=== PATIENT | male | born 1940 | race Caucasian/White ===

== ENCOUNTER 2019-02-26 01:34 | Observation (INO) ==
--- NOTE | 2019-02-26 01:44 | Emergency Department Note ---
Disposition Clinical Impression: Frequent PVCs Chest pain Qualifiers: Chest pain type: other chest pain Qualified Code(s): R07.89 - Other chest pain Disposition: Admitted As Inpatient Condition: Fair Time of Disposition: 04:43 Chest Pain HPI - General Stated Complaint: Chest Pain Time Seen by Provider: 02/26/19 01:40 - History of Present Illness HPI Narrative: 78-year-old gentleman presents from home via EMS for evaluation of chest pain. Described as midsternal. He is uncertain if this pain is related to his arthritis which he knows his costosternal or if it is cardiac in nature. Unchanged with exertion. Present rest. Seems to be worse when he sits. Patient called [employer] because his chest pain felt different in that it radiated to his interscapular region. This pain awoke him from sleep. He checked his HR which was in the 130's. Patient notes he started a new cardiac medication appx 1 month ago that will "help him build up his heart muscle" but does not know the name. PMH: Hypertension, Hypercholesteremia, CAD/PTCA, Congestive Heart Failure ROS: Positive: As above Negative: Fever, chills, nausea, vomiting, palpitations, unusual dyspnea, diaphoresis - Related Data Home Medications Medication Instructions Recorded Confirmed Aspirin 81 mg PO DAILY 07/24/15 02/26/19 Isosorbide MONOnitrate (24 HR) 30 mg PO 1400 07/24/15 02/26/19 [Imdur] LORazepam [Ativan] 0.5 mg PO BID 07/24/15 02/26/19 Nitroglycerin [Nitrostat] 0.4 mg SL Q5-6MIN PRN 07/24/15 02/26/19 Simvastatin [Zocor] 20 mg PO HS 07/24/15 02/26/19 Pantoprazole Sodium [Protonix] 40 mg PO QAM 10/29/15 02/26/19 Ascorbate Calcium [Vitamin C] 500 mg PO QAM 01/10/19 02/26/19 Fish Oil/Dha/Epa [Fish Oil 1,200 1 each PO QAM 01/10/19 02/26/19 mg Fish Oil] Fluticasone Propionate Nasal 1 spr NS QAM 01/10/19 02/26/19 [Flonase] Multivit-Min/Folic/Vit K/Lycop 1 each PO QAM 01/10/19 02/26/19 [Men's 50 Plus Multivitamin Tab] Ubidecarenone/Vit E Acetate [Co 200 mg PO QAM 01/10/19 02/26/19 Q-10 100 mg Softgel] Sacubitril/Valsartan 24/26 mg 1 tab PO BID 02/26/19 02/26/19 [Entresto 24 mg-26 mg Tablet] Previous Rx's Medication Instructions Recorded Sodium Chloride [Sodium Chloride 1 gm PO BID #60 tablet 11/19/15 Tab] Metoprolol XL (24 HR) Succ [Toprol 12.5 mg PO DAILY 60 Days #30 01/11/19 Xl] tab.er.24h Allergies Allergy/AdvReac Type Severity Reaction Status Date / Time atropine Allergy Unknown unknown Verified 10/29/15 11:41 per patient phenobarbital Allergy Unknown unknown Verified 10/29/15 11:23 per patient phenylephrine Allergy Unknown unknown Verified 10/29/15 11:23 [From Hycomine Compound] per patient scopolamine Allergy Unknown unknown Verified 10/29/15 11:23 per patient acetaminophen [From Tylenol] Allergy See Verified 11/17/15 23:46 Comments hydromorphone [From Dilaudid] AdvReac Mild dizziness Verified 10/29/15 11:41 passed out morphine AdvReac Mild dizziness. Verified 10/29/15 11:41 passed out chlorpheniramine AdvReac Unknown "make feel Verified 10/29/15 11:41 [From Hycomine Compound] funny" codeine AdvReac Unknown light Verified 10/29/15 11:41 headed esomeprazole AdvReac Unknown made feel Verified 10/29/15 11:41 funny hydrocodone AdvReac Unknown light Verified 10/29/15 11:41 [From Hycomine Compound] headed Hyoscyamine [From ] AdvReac Unknown made feel Verified 10/29/15 11:41 funny oxycodone [From Percocet] AdvReac Unknown lgiht Verified 10/29/15 11:41 headed All systems ED: reviewed and negative except as stated. Review of Systems: As Per HPI Chest Pain PMH - Past Medical History Medical history: Reports: arthritis, cancer, coronary artery disease, hyperlipidemia, hypertension, myocardial infarction Surgical history: Reports: angioplasty/stent, cancer surgery, carotid endarterectomy, hip replacement Psychiatric history: Reports: anxiety - Social History Smoking Status: Never smoker Alcohol use: Reports: none Drug use: Reports: none Physical Exam Vital Signs Reviewed General: Patient is alert, oriented, and in no acute distress. Head: atraumatic, normocephalic Eye: normal appearance, PERRL, EOMI, no scleral icterus, no conjunctival injection ENT: mucous membranes moist, normal external ear exam Neck: normal inspection, trachea midline, full ROM Chest: normal inspection, symmetric chest rise Respiratory: Good respiratory effort. Bilateral breath sounds are clear without wheezing, crackles, or rhonchi. Cardiovascular: Regular rate and rhythm. No clicks, rubs, gallops, or murmors. Normal heart sounds. Bilateral radial pulses 2/4 equal. No pedal edema. Abdomen: Bowel sounds present normoactive. Abdomen is soft, nondistended, and nontender. No guarding or rebound. No organomegaly noted. Musculoskeletal: Spontaneously moving all extremities. No pain to palpation of patient's back or posterior ribs. Skin: warm, dry, intact. Neuro: GCS 15. No focal neurologic deficits observed. Psych: Patient's affect is appropriate for situation. Course Course Narrative: Cardiac catheterization January 2019 Impressions: Double vessel coronary artery disease. Previously stented LAD patent. Coronary Dominance: Left Lesion Findings/Interventions * Left Main Coronary Artery: There is a 30% stenosis in the Distal LMCA. The lesion has severe calcification noted. * Left Anterior Descending: There is a 40% instent restenosis in the Proximal LAD. The lesion has severe calcification noted. There is a 40% stenosis in the Mid LAD. * Circumflex: There is a 50% stenosis in the Proximal Circumflex. The lesion has severe calcification noted. * Right Coronary Artery: There is a 40% stenosis in the Proximal RCA. Echocardiogram January 2019 Impressions: LVEF 35%. Global and mild segmental LV systolic dysfunction. LV chamber size upper limits of normal. Normal right ventricular structure and function. Severe bi-atrial enlargement. Moderate aortic regurgitation. Mild mitral regurgitation. Mild- moderate tricuspid regurgitation. Mild-moderate pulmonic regurgitation. Moderate pulmonary hypertension. Left Ventricular Wall Motion: Rest Echo Findings - The apex, apical inferior, mid inferior, basal inferior, apical anterior, mid anterior, basal anterior, apical septal, mid inferior septal, basal inferior septal, apical lateral, mid anterior lateral, basal anterior lateral, mid anterior septal, mid inferior lateral, basal anterior septal and basal inferior lateral santiago were hypokinetic. EKG dated 02/26/19 at 01:45 interpreted as sinus rhythm with a rate of 93. Multifocal frequent PVCs. Prolonged GA interval; First degree AV block. Nonspecific STT changes. Compared to previous EKG dated 01/09/2019 showing increased PVC frequnecy. Patient has elevation in troponin of 0.06. This is consistent with his baseline. Aspirin given. Chest x-ray is unremarkable. No patient had a recent cardiac catheterization, he has a change in character of his chest pain now including interscapular pain that is nonreproducible. Given his elevated troponin, though somewhat normal for him, recommend admission to the hospital for cyclic troponins. I discussed this with the admitting hospitalist, Dr. Restrepo, who agrees to accept the patient for continued evaluation and monitoring. Chest X-Ray 02/26/19 01:40 IMPRESSION: No acute findings. D/ / Prachi Moon MD / Prachi Moon MD Interpreting Provider: Prachi Moon MD Vital Signs Temperature 97.9 F 02/26/19 01:42 Pulse Rate 85 02/26/19 01:42 Respiratory Rate 18 02/26/19 01:42 Blood Pressure 119/65 02/26/19 01:42 O2 Sat by Pulse Oximetry 100 02/26/19 01:42 Temperature 97.9 F 02/26/19 01:42 Pulse Rate 61 02/26/19 04:10 Respiratory Rate 16 02/26/19 04:10 Blood Pressure 113/70 02/26/19 04:10 O2 Sat by Pulse Oximetry 99 02/26/19 04:10 Oxygen Delivery Oxygen Delivery Room Air Chest Pain - Lab Data Result diagrams: 02/26/19 08:18 02/26/19 01:55 Lab Results 02/26/19 02/26/19 02/26/19 Range/Units 01:55 01:55 01:55 WBC 5.4 (4.3-11.1) K/mcL RBC 3.51 L (4.19-5.50) M/mcL Hgb 11.1 L (12.9-16.9) g/dL Hct 33.8 L (37.5-50.1) % MCV 96.3 (83.0-100.0) fL MCH 31.6 (28.0-33.3) pg MCHC 32.8 (31.6-35.5) g/dL RDW 14.9 H (11.5-14.5) % Plt Count 148 (140-400) K/mcL MPV 11.2 (9.4-12.4) fL Immature Gran % 0.2 (0-4) % Seg Neutrophils % 65.8 % Lymphocytes % 23.9 % Monocytes % 8.4 % Eosinophils % 1.1 % Basophils % 0.6 % Neutrophils # 3.5 (1.6-8.9) K/mcL Lymphocytes # 1.3 (0.6-4.6) K/mcL Monocytes # 0.5 (0.0-1.3) K/mcL Eosinophils # 0.1 (0.0-0.6) K/mcL Basophils # 0.0 (0.0-0.2) K/mcL PT 11.9 (9.4-12.1) Seconds INR 1.1 APTT 36.7 H (26.0-36.0) Seconds Sodium 133 L (136-145) mEq/L Potassium 5.1 (3.5-5.1) mEq/L Chloride 101 (98-107) mEq/L Carbon Dioxide 24 (23-29) mEq/L BUN 26 H (8-23) mg/dL Creatinine 1.46 H (0.70-1.30) mg/dL Est GFR ( Amer) 56 L (> 60) Est GFR (Non-Af Amer) 46 L (> 60) BUN/Creatinine Ratio 18 (6-26) Glucose 113 H (70-105) mg/dL Calculated Osmolality 282 (280-300) Calcium 9.5 (8.6-10.3) mg/dL Troponin I 0.06 H* (< 0.04) ng/mL Heart Score - Score History: Moderately Suspicious EKG: Non Specific repolarisation Disturbance Age: Greater than 65 Risk Factors: Equal/Greater than 3 risk factor or history of atherosclerotic disease Troponin: 1-3x normal limit HEART Score Total: 7 Attestation Statement - Attestation Attestation: Dr. Farrell note: Patient seen in conjunction with emergency resident Dr. Ramirez. Please see his charting for complete documentation. I spent [id number] time with the patient and agree with the patient's treatment and disposition. Elevation in troponin noted. EKG and heart monitor shows intermittent sinus tachycardia with multifocal atrial beats and multiple premature ventricular contractions. No act helena pain in the chest admission. Back pain which is new symptom tonight. As well as palpitations. Vital signs stable upon admission.
[2019-02-26 02:37] LABS: Calcium 9.5 mg/dL (8.6-10.3); Potassium 5.1 mEq/L (3.5-5.1); Troponin I 0.06 ng/mL (< 0.04)
[2019-02-26 03:02] LABS: Basophils % 0.6 %; Eosinophils # 0.1 K/mcL (0.0-0.6); Eosinophils % 1.1 %; Hematocrit 33.8 % (37.5-50.1); Hemoglobin 11.1 g/dL (12.9-16.9); Immature Granulocytes % 0.2 % (0-4); Lymphocytes # 1.3 K/mcL (0.6-4.6); Lymphocytes % 23.9 %; Mean Corpuscular HGB Conc 32.8 g/dL (31.6-35.5); Mean Corpuscular Hemoglobin 31.6 pg (28.0-33.3); Mean Corpuscular Volume 96.3 fL (83.0-100.0); Mean Platelet Volume 11.2 fL (9.4-12.4); Monocytes # 0.5 K/mcL (0.0-1.3); Monocytes % 8.4 %; Neutrophils # 3.5 K/mcL (1.6-8.9); Platelet Count 148 K/mcL (140-400); Red Blood Count 3.51 M/mcL (4.19-5.50); Red Cell Distribution Width 14.9 % (11.5-14.5); Segmented Neutrophils % 65.8 %
[2019-02-26 03:20] LABS: INR 1.1; Prothrombin Time 11.9 Seconds (9.4-12.1)
[2019-02-26 03:22] LABS: Activated Partial Thrombo Time 36.7 Seconds (26.0-36.0)
[2019-02-26] MEDS ORDERED: Naloxone 0.4 MG/ML INJ IVP PRN (05:32)
[2019-02-26] MEDS ORDERED: Ondansetron 4 MG/2 ML VIAL IVP PRN (05:32)
[2019-02-26] MEDS ORDERED: Nitroglycerin 0.4 MG TAB.SUBL SL PRN (05:37)
--- NOTE | 2019-02-26 05:52 | Internal Med History&Physical ---
Date of Encounter: 02/26/19 Time of Encounter: 04:45 Internal Medicine - H&P: HPI Chief complaint: CP Admitted From: Emergency Dept Plans for Post Hospital Care: Home History of present illness: Mr. Kraft is a 78 year old male w/PMH of CAD, HLD, HTN, previous myocardial infarction in 2003 with stent placement 2, renal carcinoma w/removal of rt. kidney, arthritis, CKD, and anxiety presents from the ED with chief complaint of chest pain that began overnight. Patient reports pain in the center of his chest with radiation to his back. Patient states he has had this pain before and has costosternal pain due to arthritis. Pain was unprovoked and first occurred when patient was [employer] and then awoke patient from sleep. Checked his heart rate which was in 130s at the time. Last echo done on 01/10/19 which showed LVEF of 35%. Patient was placed on new medication by Dr. Wild to help build his heart muscle and also scheduled for cardiac rehabilitation. LHC done on 01/17/19. No aggravating or alleviating factors. Patient reports weakness but denies recent illness, fever, chills, nausea, vomiting, headache, changes in vision, unusual bleeding, shortness of breath, abdominal pain, diarrhea, constipation, dizziness, lightheadedness, numbness, tingling, pre-syncope, or syncope. Past Med Surg Social Fam HX - Past Medical History Source: patient, old records reviewed, obtained from family Medical history: arthritis, cancer (Renal carcinoma w/removal of rt kidney), coronary artery disease, hyperlipidemia, hypertension, myocardial infarction (2003) Additional medical history: TMJ, cataracts, Cerebral Vascular Disease, Kidney cancer Psychiatric history: anxiety - Past Surgical History Surgical History: angioplasty/stent, cancer surgery, carotid endarterectomy, hip replacement (Left) Additional surgical history: nephrectomy, right testicle removed, hernia repair, tumor removed from groin - Social History Smoking Status: Never smoker Smokeless Tobacco Status: No Alcohol use: none Drug use: none Occupational status: previously employed Current living situation: Home, With Family Activity Level: Independent ambulation, Very active Recent Out of Country Travel Within the Last 8 Weeks: No Exposure or Possible Exposure to Illness During Travel: No - Family History Father Race: Family Member Ethnicity: Non- Living Status: Age at : 69 Cause of : [place] Hx Family Cardiac Disorders: Yes (OH) Mother Race: Family Member Ethnicity: Non- Living Status: Age at : 60 Cause of : [place] Hx Family Cardiac Disorders: Yes ([place]) Brother Race: Family Member Ethnicity: Non- Living Status: Age at : 80 Cause of : Suspected OH Hx Family Cardiac Disorders: Yes (Probable OH) Sister Race: Family Member Ethnicity: Non- Living Status: Age at : 78 Cause of : Blood clot after surgery Hx Family Cardiac Disorders: Yes (Blood clot) Internal Medicine - H&P: Meds Aspirin 81 mg PO DAILY 07/24/15 [History] Isosorbide MONOnitrate (24 HR) [Imdur] 30 mg PO 1400 07/24/15 [History] LORazepam [Ativan] 0.5 mg PO BID 07/24/15 [History] Nitroglycerin [Nitrostat] 0.4 mg SL Q5-6MIN PRN 07/24/15 [History] Simvastatin [Zocor] 20 mg PO HS 07/24/15 [History] Pantoprazole Sodium [Protonix] 40 mg PO QAM 10/29/15 [History] Sodium Chloride [Sodium Chloride Tab] 1 gm PO BID #60 tablet 11/19/15 [Rx] Ascorbate Calcium [Vitamin C] 500 mg PO QAM 01/10/19 [History] Fish Oil/Dha/Epa [Fish Oil 1,200 mg Fish Oil] 1 each PO QAM 01/10/19 [History] Fluticasone Propionate Nasal [Flonase] 1 spr NS QAM 01/10/19 [History] Multivit-Min/Folic/Vit K/Lycop [Men's 50 Plus Multivitamin Tab] 1 each PO QAM 01/10/19 [History] Ubidecarenone/Vit E Acetate [Co Q-10 100 mg Softgel] 200 mg PO QAM 01/10/19 [History] Metoprolol XL (24 HR) Succ [Toprol Xl] 12.5 mg PO DAILY 60 Days #30 tab.er.24h 01/11/19 [Rx] Sacubitril/Valsartan 24/26 mg [Entresto 24 mg-26 mg Tablet] 1 tab PO BID 02/26/19 [History] Allergy/AdvReac Type Severity Reaction Status Date / Time atropine Allergy Unknown unknown Verified 10/29/15 11:41 per patient phenobarbital Allergy Unknown unknown Verified 10/29/15 11:23 per patient phenylephrine Allergy Unknown unknown Verified 10/29/15 11:23 [From Hycomine Compound] per patient scopolamine Allergy Unknown unknown Verified 10/29/15 11:23 per patient acetaminophen [From Tylenol] Allergy See Verified 11/17/15 23:46 Comments hydromorphone [From Dilaudid] AdvReac Mild dizziness Verified 10/29/15 11:41 passed out morphine AdvReac Mild dizziness. Verified 10/29/15 11:41 passed out chlorpheniramine AdvReac Unknown "make feel Verified 10/29/15 11:41 [From Hycomine Compound] funny" codeine AdvReac Unknown light Verified 10/29/15 11:41 headed esomeprazole AdvReac Unknown made feel Verified 10/29/15 11:41 funny hydrocodone AdvReac Unknown light Verified 10/29/15 11:41 [From Hycomine Compound] headed Hyoscyamine [From ] AdvReac Unknown made feel Verified 10/29/15 11:41 funny oxycodone [From Percocet] AdvReac Unknown lgiht Verified 10/29/15 11:41 headed All Systems PM: A 10-system review of systems was performed and is negative for pertinent findings except as documented above in the HPI. - Constitutional Constitutional: as per HPI, weakness, no chills, no fever(s), no night sweats - EENT Eyes: no change in vision, no discharge, no pain, no photophobia Ears: no ear discharge, no ear pain, no tinnitus Nose, mouth and throat: no dysphagia, no nasal discharge, no neck pain, no sore throat - Breasts Breasts: as per HPI - Cardiovascular Cardiovascular ROS IM: as per HPI, chest pain, no diaphoresis, no dyspnea, no lightheadedness, no palpitations, no syncope - Respiratory Respiratory: no cough, no dyspnea, no wheezing, no excessive phlegm production - Gastrointestinal Gastrointestinal: no abdominal pain, no diarrhea, no hematemesis, no hematochezia, no melena, no nausea, no vomiting - Genitourinary Genitourinary ROS male: as per HPI - Musculoskeletal Musculoskeletal ROS IM: as per HPI, back pain, no numbness, no tingling - Integumentary Integumentary IM: no rash, no unusual bruising - Neurological Neurological ROS: as per HPI, weakness, no confusion, no convulsions, no focal weakness, no numbness, no tingling, no tremor(s) - Psychiatric Psychiatric: as per HPI, anxiety - Endocrine Endocrine IM: as per HPI - Hematologic/Lymphatic Hematologic/Lymphatic: no easy bruising - Allergic/Immunologic Allergic/Immunologic: as per HPI - Constitutional Vitals: Temp Pulse Resp BP Pulse Ox 97.9 F 61 16 113/70 99 02/26/19 01:42 02/26/19 04:10 02/26/19 04:10 02/26/19 04:10 02/26/19 04:10 General appearance: Present: cooperative, A&O X 3, pleasant, no acute distress, answers questions appropriately Exam: Pt. examined at bedside in ED. Pt. states his CP and back pain are currently resolved. Pt. denies any other sx or complaints at this time. VS: 97.8F temp, HR 61, RR 16, BP 113/70, SPO2 99% on room air. - Head Head exam: Present: atraumatic, normocephalic - Eye Eye exam: Present: PERRL, conjuntiva pink, sclera anicteric Pupils: Present: PERRL - ENT ENT exam: Present: normal exam - Neck Neck exam general surgery: Present: normal inspection, supple, trachea midline. Absent: lymphadenopathy - Respiratory Respiratory exam: Present: CTAB. Absent: accessory muscle use, rales, rhonchi, wheezes - Cardiovascular Cardiovascular exam: Present: irregular rhythm, +S1, +S2. Absent: diastolic murmur, gallop, rubs, systolic murmur - GI/Abdominal GI/Abdominal exam: Present: normal bowel sounds, soft, no peritoneal signs. Absent: distended, tenderness - Rectal Rectal exam: Present: deferred - Additional comments: exam deferred. - Extremities Exam Extremities exam: Present: warm, radial pulses palpable and symmetrical. Abs ent: calf tenderness, cyanotic, pedal edema - Back Exam Back exam: Present: normal inspection - Neurological Exam Neurological exam: Present: alert, CN II-XII intact, oriented X3, no focal deficits. Absent: pronater drift, facial droop, speech deficit - Psychiatric Psychiatric exam: Present: normal affect, normal mood - Skin Skin exam: Present: dry, intact Internal Med - H&P Results - Labs CBC & Chem 7: 02/26/19 01:55 02/26/19 01:55 Labs: Short CBC 02/26/19 Range/Units 01:55 WBC 5.4 (4.3-11.1) K/mcL Hgb 11.1 L (12.9-16.9) g/dL Hct 33.8 L (37.5-50.1) % Plt Count 148 (140-400) K/mcL Neutrophils # 3.5 (1.6-8.9) K/mcL BMP 02/26/19 01:55 Sodium 133 L Potassium 5.1 Chloride 101 Carbon Dioxide 24 BUN 26 H Creatinine 1.46 H Glucose 113 H Calcium 9.5 Cardiac Enzymes 02/26/19 Range/Units 01:55 Troponin I 0.06 H* (< 0.04) ng/mL - EKG Data EKG shows normal: sinus rhythm Rate: tachycardia - EKG Data Prior EKG available for review: yes EKG comments: 02/26/19 05:58 EKG dated 01/09/19 shows atrial fibrillation with paired ventricular premature complexes. Anterior infarct, old. EKG dated 02/26/19 shows sinus tachycardia with ventricular tachycardia unsustained, short ND interval, biatrial enlargement, anterior infarct (old), and non-specific T abnormalities in lateral leads. - Impressions ITS Impressions Chest X-Ray 02/26/19 01:40 IMPRESSION: No acute findings. D/ / Prachi Moon MD / Prachi Moon MD Interpreting Provider: Prachi Moon MD - Diagnostic Studies Chest x-ray Additional comments: Impressions Chest X-Ray 02/26/19 01:40 IMPRESSION: No acute findings. D/ / Prachi Moon MD / Prachi Moon MD Interpreting Provider: Prachi Moon MD - Assessment and Plan (1) Chest pain Current Visit: Yes Status: Acute Assessment and plan: Acute CP that began overnight. Patient reports pain in the center of his chest with radiation to his back. Patient states he has had this pain before and has costosternal pain due to arthritis. Pain was unprovoked and first occurred when patient was [employer] and then awoke patient from sleep. Checked his heart rate which was in 130s at the time. Last echo done on 01/10/19 which showed LVEF of 35%. LHC performed on 01/17/19 which showed double vessel coronary artery disease, 30% stenosis in the distal LMCA, 40% in-stent restenosis in the proximal LAD, 40% stenosis in the mid LAD, 50% stenosis in the proximal circumflex, and 40% stenosis in the proximal RCA. Patient was placed on new medication by Dr. Wild to help build his heart muscle and also scheduled for cardiac rehabilitation. No aggravating or alleviating factors. Hx of previous OH in 2003 w/stents x2. Initial troponin 0.06. Trending. ASA. Statin. SL nitro PRN. Limited Echocardiogram ordered. Cardiology consult ordered but not confirmed d/t time of night placed. A.M. team to follow-up and confirm consult d/t pts. high- risk status. Pt. is high risk for cardiac event and further morbidity d/t current unprovoked CP, hx of previous OH w/stents x2, recent LHC showing further stenosis, reduced LVEF of 35% on recent Echo, extensive familial hx of OH and CAD; and risk factors of HTN, HLD, previous OH. Observation. Qualifiers: Chest pain type: other chest pain Qualified Code(s): R07.89 - Other chest pain; R07.8 - Other chest pain (2) Elevated troponin I level Current Visit: Yes Status: Chronic Assessment and plan: Hx of chronically elevated troponins. Initial troponin tonight 0.06. Trending. No CP on exam. Trending x2. (3) CAD (coronary artery disease) Current Visit: Yes Status: Chronic Assessment and plan: Hx of chronic CAD. OH in 2003. Stent placement x2. LHC on 01/17/19 showed double vessel coronary artery disease. 30% stenosis and distal LMCA. 40% in-stent restenosis in the proximal LAD. 40% stenosis in the mid LAD. 50% stenosis in the proximal circumflex. 40% stenosis in the proximal RCA. Echocardiogram on 01/07/19 shows LVEF 35%. Continuous cardiac telemetry. Continue pts. HLD and HTN medications. Qualifiers: Coronary Disease-Associated Artery/Lesion type: [place] artery [place] vs. transplanted heart: [place] heart Associated angina: without angina Qualified Code(s): I25.10 - Atherosclerotic heart disease of [place] coronary artery without angina pectoris (4) HTN (hypertension) Current Visit: Yes Status: Chronic Assessment and plan: Hx of chronic HTN. Monitor pt. and VS. Continue pts. Metoprolol. Qualifiers: Hypertension type: essential hypertension Qualified Code(s): I10 - Essential (primary) hypertension (5) HLD (hyperlipidemia) Current Visit: Yes Status: Chronic Assessment and plan: Hx of chronic HLD. Lipid panel in a.m. labs. Continue pts. Zocor. Qualifiers: Hyperlipidemia type: pure hypercholesterolemia Qualified Code(s): E78.00 - Pure hypercholesterolemia, unspecified; E78.0 - Pure hypercholesterolemia (6) CKD (chronic kidney disease) Current Visit: Yes Status: Chronic Assessment and plan: Hx of CKD. Currently stage 3 w/GFR of 46 and creatinine of 1.46. Monitor I&O. Avoid nephrotoxins. Qualifiers: Chronic kidney disease stage: stage 3 (moderate) Qualified Code(s): N18.3 - Chronic kidney disease, stage 3 (moderate) (7) GERD (gastroesophageal reflux disease) Current Visit: Yes Status: Chronic Assessment and plan: Hx of chronic GERD. Continue pts. Protonix. Qualifiers: Esophagitis presence: without esophagitis Qualified Code(s): K21.9 - Gastro-esophageal reflux disease without esophagitis (8) Status post nephrectomy Current Visit: Yes Status: Chronic Assessment and plan: Hx of removal of right kidney due to renal carcinoma. Monitor pts. I&O. Avoid nephrotoxins. (9) Previous myocardial infarction older than 8 weeks Current Visit: Yes Status: Resolved Assessment and plan: Hx of previous OH in 2003. Stents x2. Continuous cardiac telemetry. Continue pts. HLD and HTN medications. (10) DVT prophylaxis Current Visit: Yes Status: Acute Assessment and plan: Heparin 5,000 units SQ Q8HR for DVT prophylaxis. Monitor pt. for signs of bleeding. - Time Spent With Patient Total time spent is greater than 50% in coordination of care (as documented) at patient's floor/unit and/or counseling patient: Greater than 35 minutes
[2019-02-26] MEDS ORDERED: *HR* Heparin 5,000 UNIT/ML VIAL SQ SCH (06:00)
[2019-02-26] MEDS ORDERED: *HR* Heparin 5,000 UNIT/ML VIAL IVP ONE (07:28)
[2019-02-26] MEDS ORDERED: *HR* Heparin 5,000 UNIT/ML VIAL IVP PRN ×2 (07:28)
[2019-02-26] MEDS ORDERED: Heparin 25,000 UNIT/250 ML D5W 25,000 UNIT/250 ML IV.SOLN IVC SCH (07:30)
[2019-02-26 08:42] LABS: Hemoglobin 10.3 g/dL (12.9-16.9); Mean Corpuscular HGB Conc 33.2 g/dL (31.6-35.5); Mean Corpuscular Volume 96.3 fL (83.0-100.0); Mean Platelet Volume 10.3 fL (9.4-12.4); Platelet Count 131 K/mcL (140-400); Red Blood Count 3.22 M/mcL (4.19-5.50); Red Cell Distribution Width 14.9 % (11.5-14.5)
[2019-02-26 08:54] LABS: INR 1.1; Prothrombin Time 12.6 Seconds (9.4-12.1)
[2019-02-26] MEDS ORDERED: Aspirin Enteric Coated 81 MG Tablet PO SCH (09:00)
[2019-02-26] MEDS: Metoprolol XL (24 HR) Succ 25 MG TAB.ER.24H PO SCH (09:03)
[2019-02-26] MEDS: Aspirin 81 MG TAB.CHEW PO SCH (09:03)
[2019-02-26] MEDS: *HR* LORazepam 0.5 MG TABLET PO SCH ×2 (09:03→20:45)
[2019-02-26] MEDS: (Pantoprazole Sodium [Protonix] 40 MG) PO SCH (09:03)
[2019-02-26] MEDS: SACUBITRIL/VALSARTAN 24/26 MG TABLET PO SCH ×2 (09:03→20:45)
--- NOTE | 2019-02-26 09:35 | Internal Med Progress Note ---
Hospitalist Progress Note - Encounter Date of Encounter: 02/26/19 Time of Encounter: 09:48 - Subjective Interval History: No acute event overnight. No active chest pain at this time. Family at bedside. Review the lab with high troponin. Reviewed vitals Patient denies fever chills nausea vomiting headache dizziness shortness of breath abdominal pain diarrhea - Exam Vitals: Temp Pulse Resp BP Pulse Ox 97.6 F 62 18 124/77 100 02/26/19 07:04 02/26/19 07:04 02/26/19 07:04 02/26/19 07:04 02/26/19 07:04 Exam: Pt. examined at bedside in ED. Pt. states his CP and back pain are currently resolved. Pt. denies any other sx or complaints at this time. VS: 97.8F temp, HR 61, RR 16, BP 113/70, SPO2 99% on room air. - Assessment and Plan (1) Chest pain Current Visit: Yes Status: Acute Assessment and Plan: Acute CP that began overnight. Patient reports pain in the center of his chest with radiation to his back. Patient states he has had this pain before and has costosternal pain due to arthritis. Pain was unprovoked and first occurred when patient was [place] and then awoke patient from sleep. Checked his heart rate which was in 130s at the time. Last echo done on 01/10/19 which showed LVEF of 35%. LHC performed on 01/17/19 which showed double vessel coronary artery disease, 30% stenosis in the distal LMCA, 40% in-stent restenosis in the proximal LAD, 40% stenosis in the mid LAD, 50% stenosis in the proximal circumflex, and 40% stenosis in the proximal RCA. Patient was placed on new medication by Dr. Wild to help build his heart muscle and also scheduled for cardiac rehabilitation. No aggravating or alleviating factors. Hx of previous [place] in 2003 w/stents x2. Initial troponin 0.06. Started him on heparin drip and continued ASA, beta lisa Statin. SL nitro PRN. Limited Echocardiogram ordered. Consulted cardiology. Pt. is high risk for cardiac event and further morbidity d/t current unprovoked CP, hx of previous [place] w/stents x2, recent LHC showing further stenosis, reduced LVEF of 35% on recent Echo, extensive familial hx of [place] and CAD; and risk factors of HTN, HLD, previous WI. (2) CAD (coronary artery disease) Current Visit: No Status: Chronic Assessment and Plan: Hx of chronic CAD. [place] in 2003. Stent placement x2. [facility] on 01/17/19 showed double vessel coronary artery disease. 30% stenosis and distal LMCA. 40% in-stent restenosis in the proximal LAD. 40% stenosis in the mid LAD. 50% stenosis in the proximal circumflex. 40% stenosis in the proximal RCA. Echocardiogram on 01/07/19 shows LVEF 35%. Continuous cardiac telemetry. Continue home medicine (3) Acute kidney injury Current Visit: No Status: Acute Assessment and Plan: Baseline creatinine 1.28. On admission creatinine 1.46. patient is on ARB for severe cardiomyopathy EF 35% . Be cautious in hydration due to low EF. Monitor BMP tomorrow if further worsening cr then will hold ARB. 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 Monitor pts. I&O. Avoid nephrotoxins. (5) GERD (gastroesophageal reflux disease) Current Visit: No Status: Chronic Assessment and Plan: Hx of chronic GERD. Continue pts. Protonix. (6) Elevated troponin I level Current Visit: No Status: Chronic Assessment and Plan: Hx of chronically elevated troponins. Initial troponin tonight 0.06. Trending. No CP on exam. Please see above (7) CKD (chronic kidney disease) Current Visit: No Status: Chronic Assessment and Plan: Hx of CKD. Currently stage 3 w/GFR of 46 and creatinine of 1.46. Monitor I&O. Avoid nephrotoxins. (8) HTN (hypertension) Current Visit: No Status: Chronic Assessment and Plan: well controlled Hx of chronic HTN. Monitor bp. home med (9) HLD (hyperlipidemia) Current Visit: No Status: Chronic Assessment and Plan: Hx of chronic HLD. Lipid panel - pending. Continue pts. Zocor. (10) Previous myocardial infarction older than 8 weeks Current Visit: No Status: Resolved Assessment and Plan: Hx of previous [place] in 2003. Stents x2. Continuous cardiac telemetry. Continue pts. HLD and HTN medications. (11) DVT prophylaxis Current Visit: No Status: Acute Assessment and Plan: on heparin drip now - Time Spent with Patient Total time spent is greater than 50% in coordination of care (as documented) at patient's floor/unit and/or counseling patient: Internal Medicine: Result - Labs CBC & Chem 7: 02/26/19 08:18 02/26/19 01:55 Labs: Short CBC 02/26/19 02/26/19 Range/Units 01:55 08:18 WBC 5.4 6.0 (4.3-11.1) K/mcL Hgb 11.1 L 10.3 L (12.9-16.9) g/dL Hct 33.8 L 31.0 L (37.5-50.1) % Plt Count 148 131 L (140-400) K/mcL Neutrophils # 3.5 (1.6-8.9) K/mcL BMP 02/26/19 01:55 Sodium 133 L Potassium 5.1 Chloride 101 Carbon Dioxide 24 BUN 26 H Creatinine 1.46 H Glucose 113 H Calcium 9.5 Cardiac Enzymes 02/26/19 02/26/19 Range/Units 01:55 08:18 Troponin I 0.06 H* 0.07 H* (< 0.04) ng/mL - ABG Interpretation ABG results: PT/INR, D-dimer PT 12.6 Seconds (9.4-12.1) H 02/26/19 08:18 - Impressions Impressions Chest X-Ray 02/26/19 01:40 IMPRESSION: No acute findings. D/ / Prachi Moon MD / Prachi Moon MD Interpreting Provider: Prachi Moon MD Consult Discharge Plan - Plan Referrals: Pavan Samson Jr, MD [Primary Care Provider] - (1) Chest pain Qualifiers: Chest pain type: other chest pain Qualified Code(s): R07.89 - Other chest pain; R07.8 - Other chest pain (2) CAD (coronary artery disease) Qualifiers: Coronary Disease-Associated Artery/Lesion type: [place] artery [place] vs. transplanted heart: [place] heart Associated angina: without angina Qualified Code(s): I25.10 - Atherosclerotic heart disease of [place] coronary artery without angina pectoris (5) GERD (gastroesophageal reflux disease) Qualifiers: Esophagitis presence: without esophagitis Qualified Code(s): K21.9 - Gastro- esophageal reflux disease without esophagitis (7) CKD (chronic kidney disease) Qualifiers: Chronic kidney disease stage: stage 3 (moderate) Qualified Code(s): N18.3 - Chronic kidney disease, stage 3 (moderate) (8) HTN (hypertension) Qualifiers: Hypertension type: essential hypertension Qualified Code(s): I10 - Essential (primary) hypertension (9) HLD (hyperlipidemia) Qualifiers: Hyperlipidemia type: pure hypercholesterolemia Qualified Code(s): E78.00 - Pure hypercholesterolemia, unspecified; E78.0 - Pure hypercholesterolemia
--- NOTE | 2019-02-26 12:45 | Cardiology Consult Note ---
<Mello Tsang - Last Filed: 02/26/19 13:23> Date of Encounter: 02/26/19 Time of Encounter: 12:10 Assessment and Plan (1) Chest pain Current Visit: Yes Status: Acute Per Cardiology: Atypical symptoms. Troponins 0.06 and 0.07, peak during last hospital stay January 2019 0.12 time a catheterization with no intervention warranted. Suspect demand ischemia-- no cardiac rehabilitation consult warranted; has outpatient pending pre-rehabilitation stress test for phase 2 cardiac rehabilitation. Limited echo pending. We will discontinue IV heparin drip. Will increase long- acting nitrate of Imdur 30m PO daily to 60mg. average heart rate on telemetry 59, sinus bradycardia to sinus rhythm with no significant events noted. Qualifiers: Chest pain type: other chest pain Qualified Code(s): R07.89 - Other chest pain; R07.8 - Other chest pain (2) CAD (coronary artery disease) Current Visit: No Status: Chronic Per Cardiology: Left heart catheterization from January 2019 at time of troponin 0.12: Lesion Findings/Interventions * Left Main Coronary Artery There is a 30% stenosis in the Distal LMCA. The lesion has severe calcification noted. * Left Anterior Descending There is a 40% instent restenosis in the Proximal LAD. The lesion has severe calcification noted. There is a 40% stenosis in the Mid LAD. * Circumflex There is a 50% stenosis in the Proximal Circumflex. The lesion has severe calcification noted. * Right Coronary Artery There is a 40% stenosis in the Proximal RCA. On aspirin, statin, beta lisa, Entresto, Imdur. Qualifiers: Coronary Disease-Associated Artery/Lesion type: [place] artery [place] vs. transplanted heart: [place] heart Associated angina: without angina Qualified Code(s): I25.10 - Atherosclerotic heart disease of [place] coronary artery [facility] angina pectoris (3) Cardiomyopathy Current Visit: Yes Status: Chronic Per Cardiology: ECHO 01/2019: Impressions: LVEF 35%. Global and mild segmental LV systolic dysfunction. LV chamber size upper limits of normal. Normal right ventricular structure and function. Severe bi-atrial enlargement. Moderate aortic regurgitation. Mild mitral regurgitation. Mild-moderate tricuspid regurgitation. Mild-moderate pulmonic regurgitation. Moderate pulmonary hypertension. On BB and entresto. Euvolemic on exam. Further outpatient evaluation for need for ICD. Current limited echo pending. Qualifiers: Cardiomyopathy type: unspecified Qualified Code(s): I42.9 - Cardiomyopathy, unspecified Discussion w patient/family: The assessment and plan as outlined above was discussed with the patient and/or family members who expressed understanding and agreement. All questions were answered. Thank you for involving us in the care of your patient. Please call with any questions. History of Present Illness Consult date: 02/26/19 Requesting physician: Geneva Gracia Consult reason: CP Chief complaint: Elevated BP, HR, Back pain, CP History of present illness: Mr. Kraft is a 78 year old male with a relevant past medical history of HTN, HLD, CKD 3A, CAD, anxiety, history of CVA, right nephrectomy. Cardiology consult for chest pain and mild troponin elevations. The patient seen with family at bedside. Reports seen by his primary disc inspector Dr. Wild a few weeks ago with pending outpatient cardiac rehabilitation referral. He reports walking through [employer] yesterday and d eveloped sharp lower back stabbing sensation that is not new for him. He also reports later that evening pain worsened and developed some midsternal discomfort as a sharp stabbing sensation to his chest as well. Reports this also is not new for him. He does not utilize nitroglycerin pills. He reports became concerned with systolic blood pressure was in the 130s which is higher for him and heart rates elevated in the 130s. He denies any recent fever, chills, nausea, vomiting, diarrhea. He denies any active bleeding or blood loss. Denies any history of atrial fibrillation. Denies any palpitations, dizziness, syncope, falls. Denies any edema. Repports now taking Imdur and Entresto. Past Med Surg Social Fam HX - Past Medical History Attestation: Yes The following information was validated with the patient. Source: patient, old records reviewed, obtained from family Medical history: arthritis, cancer (Renal carcinoma w/removal of rt kidney), coronary artery disease, hyperlipidemia, hypertension, myocardial infarction (2003) Additional medical history: TMJ, cataracts, Cerebral Vascular Disease, Kidney cancer Psychiatric history: anxiety - Past Surgical History Surgical History: angioplasty/stent, cancer surgery, carotid endarterectomy, hip replacement (Left) Additional surgical history: nephrectomy, right testicle removed, hernia repair, tumor removed from groin - Social History Smoking Status: Never smoker Smokeless Tobacco Status: No Alcohol use: none Drug use: none - Family History Mother Race: Family Member Ethnicity: Non- Living Status: Age at : 60 Cause of : [place] Hx Family Cardiac Disorders: Yes ([place]) Brother Race: Family Member Ethnicity: Non- Living Status: Age at : 80 Cause of : Suspected [place] Hx Family Cardiac Disorders: Yes (Probable [place]) Sister Race: Family Member Ethnicity: Non- Living Status: Age at : 78 Cause of : Blood clot after surgery Hx Family Cardiac Disorders: Yes (Blood clot) Father Race: Family Member Ethnicity: Non- Living Status: Age at : 69 Cause of : [place] Hx Family Cardiac Disorders: Yes ([place]) Medications and Allergies Aspirin 81 mg PO DAILY 07/24/15 [History] Isosorbide MONOnitrate (24 HR) [Imdur] 30 mg PO 1400 07/24/15 [History] LORazepam [Ativan] 0.5 mg PO BID 07/24/15 [History] Nitroglycerin [Nitrostat] 0.4 mg SL Q5-6MIN PRN 07/24/15 [History] Simvastatin [Zocor] 20 mg PO HS 07/24/15 [History] Pantoprazole Sodium [Protonix] 40 mg PO QAM 10/29/15 [History] Sodium Chloride [Sodium Chloride Tab] 1 gm PO BID #60 tablet 11/19/15 [Rx] Ascorbate Calcium [Vitamin C] 500 mg PO QAM 01/10/19 [History] Fish Oil/Dha/Epa [Fish Oil 1,200 mg Fish Oil] 1 each PO QAM 01/10/19 [History] Fluticasone Propionate Nasal [Flonase] 1 spr NS QAM 01/10/19 [History] Multivit-Min/Folic/Vit K/Lycop [Men's 50 Plus Multivitamin Tab] 1 each PO QAM 01/10/19 [History] Ubidecarenone/Vit E Acetate [Co Q-10 100 mg Softgel] 200 mg PO QAM 01/10/19 [History] Metoprolol XL (24 HR) Succ [Toprol Xl] 12.5 mg PO DAILY 60 Days #30 tab.er.24h 01/11/19 [Rx] Sacubitril/Valsartan 24/26 mg [Entresto 24 mg-26 mg Tablet] 1 tab PO BID 02/26/19 [History] Allergy/AdvReac Type Severity Reaction Status Date / Time atropine Allergy Unknown unknown Verified 10/29/15 11:41 per patient phenobarbital Allergy Unknown unknown Verified 10/29/15 11:23 per patient phenylephrine Allergy Unknown unknown Verified 10/29/15 11:23 [From Hycomine Compound] per patient scopolamine Allergy Unknown unknown Verified 10/29/15 11:23 per patient acetaminophen [From Tylenol] Allergy See Verified 11/17/15 23:46 Comments hydromorphone [From Dilaudid] AdvReac Mild dizziness Verified 10/29/15 11:41 passed out morphine AdvReac Mild dizziness. Verified 10/29/15 11:41 passed out chlorpheniramine AdvReac Unknown "make feel Verified 10/29/15 11:41 [From Hycomine Compound] funny" codeine AdvReac Unknown light Verified 10/29/15 11:41 headed esomeprazole AdvReac Unknown made feel Verified 10/29/15 11:41 funny hydrocodone AdvReac Unknown light Verified 10/29/15 11:41 [From Hycomine Compound] headed Hyoscyamine [From ] AdvReac Unknown made feel Verified 10/29/15 11:41 funny oxycodone [From Percocet] AdvReac Unknown lgiht Verified 10/29/15 11:41 headed All Systems Review: The remainder of the systems were reviewed and are negative - Cardiovascular Cardiovascular: as per HPI, chest pain at rest, chest pain with exertion, rapid heart rate - Musculoskeletal Musculoskeletal: back pain Physical Examination Vital Signs, Last 4 Hours Temp Pulse Resp BP Pulse Ox 02/26/19 11:15 97.2 F L 59 16 116/75 99 General: Conversant, No Apparent Distress HEENT: Atraumatic, Normocephaly, Mucus Membranes Moist Neck: No JVD, Normal carotid pulses Cardiac: Reg Rate and Rhythm, Normal S1 and S2, No Murmur Lungs: Normal Breath Sounds, No Wheeze, Rales, Rhonchi Neuro: Alert and responsive, No focal deficits noted Abdomen: Soft, Non-Tender Skin: No rashes noted on visualized skin Musculoskeletal: No Chest Wall Tenderness Extremities: No Clubbing, No Cyanosis, No Edema, Normal Pulses Results 02/26/19 08:18 02/26/19 01:55 Lab Results Laboratory Tests 02/26/19 02/26/19 02/26/19 01:55 01:55 01:55 Hgb 11.1 L Hct 33.8 L INR 1.1 Creatinine 1.46 H Est GFR (Non-Af Amer) 46 L Troponin I 0.06 H* 02/26/19 08:18 Hgb Hct INR Creatinine Est GFR (Non-Af Amer) Troponin I 0.07 H* Laboratory Tests 01/10/19 06:01 Troponin I 0.12 H* ITS Impressions Chest X-Ray 02/26/19 01:40 IMPRESSION: No acute findings. D/ / Prachi Moon MD / Prachi Moon MD Interpreting Provider: Prachi Moon MD Active Medications Aspirin (Aspirin) 81 mg PO DAILY [facility] Stop: 08/28/19 09:01 Last Admin: 02/26/19 09:03 Dose: 81 mg Documented by: Fluticasone Propionate (Flonase) 50 mcg NS QAM [facility]; Protocol Stop: 08/28/19 09:01 Isosorbide Mononitrate (Imdur) 60 mg PO 1400 [facility] Stop: 08/28/19 14:01 Lorazepam (Ativan) 0.5 mg PO BID [facility] Stop: 08/28/19 09:01 Last Admin: 02/26/19 09:03 Dose: 0.5 mg Documented by: Metoprolol Succinate (Toprol Xl) 12.5 mg PO DAILY [facility] Stop: 08/28/19 09:01 Last Admin: 02/26/19 09:03 Dose: 12.5 mg Documented by: Naloxone HCl (Narcan) 0.4 mg IVP Q2MPRN PRN PRN Reason: SEE COMMENTS Stop: 08/28/19 05:33 Nitroglycerin (Nitroglycerin) 0.4 mg SL Q5MPRN PRN PRN Reason: Chest Pain Stop: 08/28/19 05:38 Ondansetron HCl (Zofran) 4 mg IVP Q8H PRN PRN Reason: Nausea And Vomiting Stop: 08/28/19 05:33 Pharmacy Profile Note (Patient Taking Own Medication) 1 each PO QAM [facility] Stop: 08/28/19 09:01 Last Admin: 02/26/19 09:03 Dose: 1 each Documented by: Sacubitril/Valsartan (Entresto 24 Mg-26 Mg Tablet) 1 tab PO BID [facility] Stop: 08/28/19 09:01 Last Admin: 02/26/19 09:03 Dose: 1 tab Documented by: Simvastatin (Zocor) 20 mg PO HS [facility]; Protocol Stop: 08/28/19 21:01 Sodium Chloride (Sodium Chloride) 1 gm PO BID [facility] Stop: 08/28/19 09:01 Last Admin: 02/26/19 09:03 Dose: 1 gm Documented by: - Imaging and Cardiology Echo: pending, report reviewed Cardiac cath: report reviewed - EKG Interpretation EKG results cardiology: personally reviewed, no diagnostic ischemia Consult Discharge Plan - Plan Referrals: Pavan Samson Jr, MD [Primary Care Provider] - <Ozzie Maravilla - Last Filed: 02/26/19 13:52> Date of Encounter: 02/26/19 - Attending Attestation I have personally performed a face to face evaluation on this patient. I have re viewed and agree with the care plan. History and Exam by me shows: Known cardiomyopathy, CAD. Recent echo and LHC showed worsening cardiomyopathy and stable CAD. Recently started on entresto. Presents with atypical chest pain and palpitations. W/u negative, will increase imdur and can fu as outpt. Assessment and Plan Discussion w patient/family: The assessment and plan as outlined above was discussed with the patient and/or family members who expressed understanding and agreement. All questions were answered. Thank you for involving us in the care of your patient. Please call with any questions. History of Present Illness History of present illness: Mr. Kraft is a 78 year old male All Systems Review: The remainder of the systems were reviewed and are negative Physical Examination Vital Signs, Last 4 Hours Temp Pulse Resp BP Pulse Ox 02/26/19 11:15 97.2 F L 59 16 116/75 99 Results 02/26/19 08:18 02/26/19 01:55 Lab Results 02/26/19 02/26/19 02/26/19 01:55 01:55 01:55 WBC 5.4 Hgb 11.1 L Hct 33.8 L Plt Count 148 INR 1.1 APTT 36.7 H Sodium 133 L Potassium 5.1 Chloride 101 Carbon Dioxide 24 BUN 26 H Creatinine 1.46 H Glucose 113 H Calcium 9.5 Troponin I 0.06 H* 02/26/19 02/26/19 02/26/19 08:18 08:18 08:18 WBC 6.0 Hgb 10.3 L Hct 31.0 L Plt Count 131 L INR 1.1 APTT Sodium Potassium Chloride Carbon Dioxide BUN Creatinine Glucose Calcium Troponin I 0.07 H*
--- NOTE | 2019-02-26 13:42 | Event Note ---
Date of Encounter: 02/26/19 Time of Encounter: 13:40 - Cardiology Event Note Discussed with Dr. Ozzie Maravilla, will cancel Echo, cardiology signing off, f/u as planned.
[2019-02-26] MEDS: Fluticasone Propionate Nasal 50 MCG/SPRAY BOTTLE NS SCH (13:52)
[2019-02-26] MEDS ORDERED: Isosorbide MONOnitrate (24 HR) 30 MG TAB.ER.24H PO SCH (14:00)
[2019-02-26] MEDS ORDERED: Isosorbide MONOnitrate (24 HR) 60 MG TAB.ER.24H PO SCH (14:00)
[2019-02-26] MEDS ORDERED: Melatonin 3 MG TABLET PO PRN (22:56)
[2019-02-27 09:21] LABS: Hematocrit 33.3 % (37.5-50.1); Mean Corpuscular Volume 96.8 fL (83.0-100.0); Mean Platelet Volume 10.9 fL (9.4-12.4); Platelet Count 146 K/mcL (140-400); Red Blood Count 3.44 M/mcL (4.19-5.50); Red Cell Distribution Width 14.9 % (11.5-14.5)
[2019-02-27 09:31] LABS: INR 1.1; Prothrombin Time 12.5 Seconds (9.4-12.1)
[2019-02-27 09:34] LABS: Activated Partial Thrombo Time 36.9 Seconds (26.0-36.0)
[2019-02-27 09:49] LABS: Calcium 9.2 mg/dL (8.6-10.3); Chol/HDL Ratio 1.9 (0-4.9); Magnesium 1.8 mg/dL (1.6-2.6); Potassium 4.3 mEq/L (3.5-5.1)
[2019-02-27] MEDS: Aspirin 81 MG TAB.CHEW PO SCH (10:29)
[2019-02-27] MEDS: *HR* LORazepam 0.5 MG TABLET PO SCH (10:30)
[2019-02-27] MEDS: Metoprolol XL (24 HR) Succ 25 MG TAB.ER.24H PO SCH (10:30)
[2019-02-27] MEDS: SACUBITRIL/VALSARTAN 24/26 MG TABLET PO SCH (10:30)
[2019-02-27] MEDS: Fluticasone Propionate Nasal 50 MCG/SPRAY BOTTLE NS SCH (10:31)
[2019-02-27] MEDS: (Pantoprazole Sodium [Protonix] 40 MG) PO SCH (10:31)
[2019-02-27 11:00] VITALS: BP 116/67
--- NOTE | 2019-02-27 13:22 | Discharge Summary ---
- NOTES TO OUTPATIENT PROVIDER Notes to Outpatient Provider: Patient may need follow-up BMP within 1-2 weeks. Patient will need follow-up with nephrology as well as cardiology outpatient. Increased Imdur dosage prescribed. Consider changing simvastatin to high intensity given coronary artery disease. Orders not resulted at time of discharge: Pending orders 02/26/19 01:40 ECG 12 lead ECG [ECG] Stat 02/26/19 07:28 Stool guiac [Occult Blood,Stool] [BF] Routine 02/28/19 04:00 Basic Metabolic Panel AM 0400 Complete Blood Count w/o Diff [HEME] AM 0400 Date of Encounter: 02/27/19 Time of Encounter: 11:17 - Discharge Diagnosis (1) CAD (coronary artery disease) Priority: Secondary Status: Chronic Qualifiers: Coronary Disease-Associated Artery/Lesion type: [place] artery [place] vs. transplanted heart: [place] heart Associated angina: without angina Qualified Code(s): I25.10 - Atherosclerotic heart disease of [place] coronary artery without angina pectoris (2) Status post nephrectomy Priority: Secondary Status: Chronic (3) DVT prophylaxis Priority: Secondary Status: Acute (4) GERD (gastroesophageal reflux disease) Priority: Secondary Status: Chronic Qualifiers: Esophagitis presence: without esophagitis Qualified Code(s): K21.9 - Gastro-esophageal reflux disease without esophagitis (5) Elevated troponin I level Priority: Primary Status: Chronic (6) CKD (chronic kidney disease) Priority: Secondary Status: Chronic Qualifiers: Chronic kidney disease stage: stage 3 (moderate) Qualified Code(s): N18.3 - Chronic kidney disease, stage 3 (moderate) (7) Chest pain Priority: Primary Status: Acute Qualifiers: Chest pain type: other chest pain Qualified Code(s): R07.89 - Other chest pain; R07.8 - Other chest pain (8) HTN (hypertension) Priority: Secondary Status: Chronic Qualifiers: Hypertension type: essential hypertension Qualified Code(s): I10 - Essential (primary) hypertension (9) HLD (hyperlipidemia) Priority: Secondary Status: Chronic Qualifiers: Hyperlipidemia type: pure hypercholesterolemia Qualified Code(s): E78.00 - Pure hypercholesterolemia, unspecified; E78.0 - Pure hypercholesterolemia (10) Previous myocardial infarction older than 8 weeks Priority: Secondary Status: Resolved Hospital course: Mr. 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 Patient had elevated troponins. Patient was started on heparin drip. Cardiology was consulted. Elevated troponin with thought to be due to demand ischemia. Patient recently had LHC in January 2019. Patient echocardiogram at that time at EF of 35%, mild TR, mild ME, moderate pulmonary hypertension. Patient did not required any further workup per cardiology. Limited Echocardiogram was canceled. Patient Imdur dose was increased. Patient did have elevated renal function which appears to be chronic in nature and patient does follow up with nephrology. Patient's renal function remained stable. We will discharge patient will continue home medication and follow-up with nephrology and cardiology as outpatient. Discharge discussed with: patient, family, nurse, social work - Time Spent with Patient Total time spent providing and/or coordinating discharge services: Time spent: Greater than 30 minutes (40) - Discharge Medications Prescriptions: New Isosorbide MONOnitrate (24 HR) [Imdur] 60 mg PO 1400 30 Days #30 tab.er.24h Continued Simvastatin [Zocor] 20 mg PO HS Nitroglycerin [Nitrostat] 0.4 mg SL Q5-6MIN PRN PRN Reason: Chest Pain LORazepam [Ativan] 0.5 mg PO BID Aspirin 81 mg PO DAILY Pantoprazole Sodium [Protonix] 40 mg PO QAM Sodium Chloride [Sodium Chloride Tab] 1 gm PO BID #60 tablet Ubidecarenone/Vit E Acetate [Co Q-10 100 mg Softgel] 200 mg PO QAM Ascorbate Calcium [Vitamin C] 500 mg PO QAM Fish Oil/Dha/Epa [Fish Oil 1,200 mg Fish Oil] 1 each PO QAM Fluticasone Propionate Nasal [Flonase] 1 spr NS QAM Multivit-Min/Folic/Vit K/Lycop [Men's 50 Plus Multivitamin Tab] 1 each PO QAM Metoprolol XL (24 HR) Succ [Toprol Xl] 12.5 mg PO DAILY 60 Days #30 ta b.er.24h Sacubitril/Valsartan 24/26 mg [Entresto 24 mg-26 mg Tablet] 1 tab PO BID Discontinued Isosorbide MONOnitrate (24 HR) [Imdur] 30 mg PO 1400 Home Medications: Aspirin 81 mg PO DAILY 07/24/15 [History] LORazepam [Ativan] 0.5 mg PO BID 07/24/15 [History] Nitroglycerin [Nitrostat] 0.4 mg SL Q5-6MIN PRN 07/24/15 [History] Simvastatin [Zocor] 20 mg PO HS 07/24/15 [History] Pantoprazole Sodium [Protonix] 40 mg PO QAM 10/29/15 [History] Sodium Chloride [Sodium Chloride Tab] 1 gm PO BID #60 tablet 11/19/15 [Rx] Ascorbate Calcium [Vitamin C] 500 mg PO QAM 01/10/19 [History] Fish Oil/Dha/Epa [Fish Oil 1,200 mg Fish Oil] 1 each PO QAM 01/10/19 [History] Fluticasone Propionate Nasal [Flonase] 1 spr NS QAM 01/10/19 [History] Multivit-Min/Folic/Vit K/Lycop [Men's 50 Plus Multivitamin Tab] 1 each PO QAM 01/10/19 [History] Ubidecarenone/Vit E Acetate [Co Q-10 100 mg Softgel] 200 mg PO QAM 01/10/19 [History] Metoprolol XL (24 HR) Succ [Toprol Xl] 12.5 mg PO DAILY 60 Days #30 tab.er.24h 01/11/19 [Rx] Sacubitril/Valsartan 24/26 mg [Entresto 24 mg-26 mg Tablet] 1 tab PO BID 02/26/19 [History] Isosorbide MONOnitrate (24 HR) [Imdur] 60 mg PO 1400 30 Days #30 tab.er.24h 02/27/19 [Rx] Allergies/Adverse Reactions: Allergy/AdvReac Type Severity Reaction Status Date / Time atropine Allergy Unknown unknown Verified 10/29/15 11:41 per patient phenobarbital Allergy Unknown unknown Verified 10/29/15 11:23 per patient phenylephrine Allergy Unknown unknown Verified 10/29/15 11:23 [From Hycomine Compound] per patient scopolamine Allergy Unknown unknown Verified 10/29/15 11:23 per patient acetaminophen [From Tylenol] Allergy See Verified 11/17/15 23:46 Comments hydromorphone [From Dilaudid] AdvReac Mild dizziness Verified 10/29/15 11:41 passed out morphine AdvReac Mild dizziness. Verified 10/29/15 11:41 passed out chlorpheniramine AdvReac Unknown "make feel Verified 10/29/15 11:41 [From Hycomine Compound] funny" codeine AdvReac Unknown light Verified 10/29/15 11:41 headed esomeprazole AdvReac Unknown made feel Verified 10/29/15 11:41 funny hydrocodone AdvReac Unknown light Verified 10/29/15 11:41 [From Hycomine Compound] headed Hyoscyamine [From ] AdvReac Unknown made feel Verified 10/29/15 11:41 funny oxycodone [From Percocet] AdvReac Unknown lgiht Verified 10/29/15 11:41 headed Date of admission: 02/26/19 04:53 Primary care physician: Pavan Samson Jr, MD Consults: 02/26/19 05:35 Consult to Earring Maker [CONS] Routine Reason for SW Consult: Please assess patient for possible home needs for post-discharge planning. 02/26/19 05:39 Consult to Pastoral Services [CONS] Routine Comment: 02/26/19 05:44 Consult to Cardiology [CONS] Routine Comment: Consulting Provider: Cardiology Maranda Reason for Consult: Patient is seen by Dr. Wild. Last Echocardiogram on 01/10/19 showed LVEF of 35%. Pt. had LHC on 01/17/19. Hx of [place] in 2003 w/stents x2. CP tonight w/radiation to back. Call Completed: No Discharging clinician: Brandon Brantley Herrera - Constitutional Vitals: Temp Pulse Resp BP Pulse Ox 97.8 F 57 16 116/67 97 02/27/19 10:56 02/27/19 10:56 02/27/19 10:56 02/27/19 10:56 02/27/19 10:56 Exam: Exam General: In no acute distress. Respiratory exam: CTAB. no accessory muscle use, rales, rhonchi, wheezes Cardiovascular exam: RRR, +S1, +S2. no murmur, gallop, rubs. midline chest scar GI/Abdominal exam: Non-tender, Non-distended, normal bowel sounds, soft, no peritoneal signs. Extremities exam: no pedal edema, pulses palpable in b/l lower extremities. no calf tenderness Neurological exam: CN II-XII intact, AO X3, no focal deficits. Skin exam: No skin rash - Patient Status Disposition: Home, Self-Care Condition: Fair - Discharge Instructions Follow Up With: Pavan Samson Jr, MD [Primary Care Provider] - Forms: ED Satisfaction Letter
--- NOTE | 2019-02-28 13:26 | Electrocardiograph Report ---
[facility] Orbit Test Date: 2019-02-26 Pat Name: Rui Kraft Department: EXAM22 Room: 2NE29 Gender: M After School Program Director: : 1940 Requested By: Rolando Ramirez Order Number: [id number] Reading MD: Maikel Almanzar Measurements Intervals [place] Rate: 107 P: -3 NM: 6 QRS: 10 QRSD: 99 T: 121 QT: 366 QTc: 381 Interpretive Statements Sinus tachycardia Ventricular tachycardia, unsustained Short NM interval Biatrial enlargement Anterior infarct, old Nonspecific T abnormalities, lateral leads Electronically Signed On 02-28-2019 13:25:32 EDT by Maikel Almanzar
== END 2019-02-27 13:45 | disposition home or self-care (01) ==
LOC: EMEROOARM 01:34 → 2NENU 01:34 → SUATTDRO 04:53 → 2NENU 05:43
PROVIDERS: ADMIT Internal Medicine; ATTEND Internal Medicine

== ENCOUNTER 2019-08-18 05:14 | Observation (INO) ==
[2019-08-18 05:46] LABS: Basophils % 0.5 %; Eosinophils # 0.1 K/mcL (0.0-0.6); Eosinophils % 0.8 %; Hematocrit 32.4 % (37.5-50.1); Hemoglobin 11.2 g/dL (12.9-16.9); Immature Granulocytes % 0.3 % (0-4); Lymphocytes # 1.2 K/mcL (0.6-4.6); Lymphocytes % 20.7 %; Mean Corpuscular HGB Conc 34.6 g/dL (31.6-35.5); Mean Corpuscular Hemoglobin 32.7 pg (28.0-33.3); Mean Corpuscular Volume 94.7 fL (83.0-100.0); Mean Platelet Volume 10.2 fL (9.4-12.4); Monocytes # 0.5 K/mcL (0.0-1.3); Monocytes % 9.1 %; Neutrophils # 4.1 K/mcL (1.6-8.9); Platelet Count 143 K/mcL (140-400); Red Blood Count 3.42 M/mcL (4.19-5.50); Red Cell Distribution Width 15.4 % (11.5-14.5); Segmented Neutrophils % 68.6 %; White Blood Count 5.9 K/mcL (4.3-11.1)
[2019-08-18 06:10] LABS: Alanine Aminotransferase 18 Units/L (7-52); Albumin 3.9 g/dL (3.5-5.7); Albumin/Globulin Ratio 1.3 (1.1-2.2); Alkaline Phosphatase 100 Units/L (34-104); Aspartate Amino Transferase 25 Units/L (13-39); BUN/Creatinine Ratio 19 (6-26); Bilirubin,Total 1.9 mg/dL (0.3-1.0); Blood Urea Nitrogen 25 mg/dL (8-23); Calcium 9.3 mg/dL (8.6-10.3); Carbon Dioxide 25 mEq/L (23-29); Chloride 100 mEq/L (98-107); Glucose 97 mg/dL (70-105); Osmolality,Calculated 282 (280-300); Potassium 4.6 mEq/L (3.5-5.1); Sodium 134 mEq/L (136-145); Total Protein 6.9 g/dL (6.4-8.9); Troponin I 0.07 ng/mL (< 0.04); eGFR For African Americans > 60 (> 60); eGFR For Non-African Americans 51 (> 60)
[2019-08-18] MEDS ORDERED: Ondansetron 4 MG/2 ML VIAL IVP PRN (08:23)
[2019-08-18] MEDS ORDERED: *HR* Heparin 5,000 UNIT/ML VIAL IVP PRN ×4 (08:29→15:13)
[2019-08-18] MEDS ORDERED: *HR* Heparin 5,000 UNIT/ML VIAL IVP ONE (08:29)
[2019-08-18] MEDS ORDERED: Heparin 25,000 UNIT/250 ML D5W 25,000 UNIT/250 ML IV.SOLN IVC SCH (08:30)
[2019-08-18] MEDS ORDERED: Nitroglycerin 0.4 MG TAB.SUBL SL PRN (09:20)
[2019-08-18] MEDS: Aspirin 81 MG TAB.CHEW PO SCH (09:26)
[2019-08-18] MEDS ORDERED: Isosorbide MONOnitrate (24 HR) 60 MG TAB.ER.24H PO SCH (09:30)
[2019-08-18] MEDS: Metoprolol XL (24 HR) Succ 25 MG TAB.ER.24H PO SCH (10:16)
[2019-08-18] MEDS ORDERED: Furosemide 20 MG/2 ML VIAL IVP ONE (13:13)
[2019-08-18] MEDS ORDERED: Isosorbide MONOnitrate (24 HR) 30 MG TAB.ER.24H PO ONE (14:00)
[2019-08-18] MEDS ORDERED: Isosorbide MONOnitrate (24 HR) 30 MG TAB.ER.24H PO SCH (14:00)
[2019-08-18 16:14] LABS: Adenovirus Not Detected (Not Detect); Bordetella Pertussis Not Detected (Not Detect); Chlamydophila pneumoniae Not Detected (Not Detect); Coronavirus 229E Not Detected (Not Detect); Coronavirus HKU1 Not Detected (Not Detect); Coronavirus NL63 Not Detected (Not Detect); Coronavirus OC43 Not Detected (Not Detect); Human Metapneumovirus Not Detected (Not Detect); Human Rhinovirus/Enterovirus Not Detected (Not Detect); Influenza A Subtype 2009 H1 Not Detected (Not Detect); Influenza A Untypeable Not Detected (Not Detect); Influenza B Not Detected (Not Detect); Mycoplasma pneumoniae Not Detected (Not Detect); Parainfluenza Virus 1 Not Detected (Not Detect); Parainfluenza Virus 2 Not Detected (Not Detect); Parainfluenza Virus 3 Not Detected (Not Detect); Parainfluenza Virus 4 Not Detected (Not Detect); Respiratory Syncytial Virus Not Detected (Not Detect)
[2019-08-18 16:27] LABS: Bilirubin,Urine Negative (Negative); Blood,Urine Trace (Negative); Clarity,Urine Clear (Clear); Color,Urine Yellow (Yellow); Glucose,Urine (UA) Normal (Normal); Ketones,Urine 15 mg/dL (Negative); Leukocyte Esterase,Urine Negative (Negative); Nitrite,Urine Negative (Negative); Protein,Urine Negative (Neg-Trace); Specific Gravity,Urine 1.015 (1.010-1.025); Urobilinogen,Urine Normal (Normal)
[2019-08-18 16:31] LABS: Bacteria,Urine None Seen per hpf (None-Few); Hyaline Casts,Urine None Seen per lpf (None-Few); Squamous Epithelial Cell,Urine None Seen per lpf (None-Few); WBC,Urine 0-3 per hpf (0-3)
[2019-08-18] MEDS: Heparin 25,000 UNIT/250 ML D5W 25,000 UNIT/250 ML IV.SOLN IVC SCH (16:34)
[2019-08-18] MEDS: Piperacillin/Tazobactam 3.375 GM in 0.9 % Sodium Chloride Mini Bag 100 ML IVPB SCH (21:32)
[2019-08-18] MEDS: *HR* LORazepam 0.5 MG TABLET PO SCH (23:47)
[2019-08-19] MEDS: Piperacillin/Tazobactam 3.375 GM in 0.9 % Sodium Chloride Mini Bag 100 ML IVPB SCH ×2 (05:57→13:02)
[2019-08-19 06:39] LABS: Basophils % 0.1 %; Hematocrit 29.7 % (37.5-50.1); Immature Granulocytes % 0.3 % (0-4); Lymphocytes # 0.8 K/mcL (0.6-4.6); Lymphocytes % 7.4 %; Mean Corpuscular HGB Conc 33.7 g/dL (31.6-35.5); Mean Corpuscular Hemoglobin 32.7 pg (28.0-33.3); Mean Corpuscular Volume 97.1 fL (83.0-100.0); Monocytes # 1.3 K/mcL (0.0-1.3); Monocytes % 11.2 %; Neutrophils # 9.1 K/mcL (1.6-8.9); Platelet Count 130 K/mcL (140-400); Red Blood Count 3.06 M/mcL (4.19-5.50); Red Cell Distribution Width 15.4 % (11.5-14.5)
[2019-08-19 06:40] LABS: White Blood Count 11.2 K/mcL (4.3-11.1)
[2019-08-19 06:55] LABS: Calcium 8.6 mg/dL (8.6-10.3); Magnesium 1.6 mg/dL (1.6-2.6); Phosphorous 3.7 mg/dL (2.7-4.5); Potassium 4.1 mEq/L (3.5-5.1)
[2019-08-19] MEDS ORDERED: Aminoglycoside Consult 1 EACH MC ONE (07:31)
[2019-08-19] MEDS: Isosorbide MONOnitrate (24 HR) 30 MG TAB.ER.24H PO SCH (08:55)
[2019-08-19] MEDS: (Ubidecarenone/Vit E Acetate [Co Q-10 100 Mg Softgel] PO SCH (08:55)
[2019-08-19] MEDS: Multivit/Ca/Min/Fe/FA 1 TAB TABLET PO SCH (08:55)
[2019-08-19] MEDS: Aspirin 81 MG TAB.CHEW PO SCH (08:55)
[2019-08-19] MEDS: Fluticasone Propionate Nasal 50 MCG/SPRAY BOTTLE NS SCH (08:55)
[2019-08-19] MEDS: Metoprolol XL (24 HR) Succ 25 MG TAB.ER.24H PO SCH (08:55)
[2019-08-19] MEDS: *HR* LORazepam 0.5 MG TABLET PO SCH ×2 (13:00→21:56)
[2019-08-19] MEDS: Heparin 25,000 UNIT/250 ML D5W 25,000 UNIT/250 ML IV.SOLN IVC SCH (13:03)
[2019-08-19] MEDS ORDERED: Vancomycin 1 EACH in 0.9 % Sodium Chloride 250 ML IVPB SCH (15:00)
[2019-08-20] MEDS ORDERED: Acetaminophen 325 MG TABLET PO PRN (03:47)
[2019-08-20 06:58] LABS: Basophils % 0.2 %; Eosinophils % 0.1 %; Hematocrit 29.6 % (37.5-50.1); Hematocrit 30.1 % (37.5-50.1); Hemoglobin 10.1 g/dL (12.9-16.9); Hemoglobin 10.3 g/dL (12.9-16.9); Immature Granulocytes % 0.2 % (0-4); Mean Corpuscular HGB Conc 34.1 g/dL (31.6-35.5); Mean Corpuscular HGB Conc 34.2 g/dL (31.6-35.5); Mean Corpuscular Hemoglobin 32.5 pg (28.0-33.3); Mean Corpuscular Volume 96.7 fL (83.0-100.0); Mean Platelet Volume 10.6 fL (9.4-12.4); Monocytes # 0.8 K/mcL (0.0-1.3); Monocytes % 9.9 %; Neutrophils # 6.3 K/mcL (1.6-8.9); Platelet Count 114 K/mcL (140-400); Platelet Count 132 K/mcL (140-400); Red Blood Count 3.06 M/mcL (4.19-5.50); Red Blood Count 3.17 M/mcL (4.19-5.50); Red Cell Distribution Width 15.3 % (11.5-14.5); Red Cell Distribution Width 15.4 % (11.5-14.5); Segmented Neutrophils % 77.6 %; White Blood Count 8.2 K/mcL (4.3-11.1)
[2019-08-20 07:20] LABS: Calcium 8.3 mg/dL (8.6-10.3); Potassium 4.4 mEq/L (3.5-5.1)
[2019-08-20] MEDS: Metoprolol XL (24 HR) Succ 25 MG TAB.ER.24H PO SCH (08:20)
[2019-08-20] MEDS: Multivit/Ca/Min/Fe/FA 1 TAB TABLET PO SCH (08:21)
[2019-08-20] MEDS: (Ubidecarenone/Vit E Acetate [Co Q-10 100 Mg Softgel] PO SCH (08:21)
[2019-08-20] MEDS: Isosorbide MONOnitrate (24 HR) 30 MG TAB.ER.24H PO SCH (08:21)
[2019-08-20] MEDS: Fluticasone Propionate Nasal 50 MCG/SPRAY BOTTLE NS SCH (08:21)
[2019-08-20] MEDS: Aspirin 81 MG TAB.CHEW PO SCH (08:21)
[2019-08-20] MEDS: *HR* LORazepam 0.5 MG TABLET PO SCH ×2 (12:30→21:45)
[2019-08-20 12:50] LABS: Bilirubin,Urine Negative (Negative); Blood,Urine Negative (Negative); Clarity,Urine Clear (Clear); Color,Urine Yellow (Yellow); Glucose,Urine (UA) Normal (Normal); Ketones,Urine Negative (Negative); Leukocyte Esterase,Urine Small (Negative); Nitrite,Urine Negative (Negative); Protein,Urine Negative (Neg-Trace); Specific Gravity,Urine 1.018 (1.010-1.025); Urobilinogen,Urine Normal (Normal)
[2019-08-20 12:53] LABS: Bacteria,Urine None Seen per hpf (None-Few); Hyaline Casts,Urine None Seen per lpf (None-Few); Squamous Epithelial Cell,Urine Moderate per lpf (None-Few)
[2019-08-20 13:00] LABS: Calcium 8.6 mg/dL (8.6-10.3); Potassium 4.2 mEq/L (3.5-5.1)
[2019-08-21 06:42] LABS: Basophils % 0.3 %; Eosinophils % 0.6 %; Hematocrit 29.1 % (37.5-50.1); Hemoglobin 9.9 g/dL (12.9-16.9); Immature Granulocytes % 0.1 % (0-4); Lymphocytes # 0.9 K/mcL (0.6-4.6); Lymphocytes % 13.9 %; Mean Corpuscular Hemoglobin 32.7 pg (28.0-33.3); Mean Platelet Volume 10.3 fL (9.4-12.4); Monocytes # 0.6 K/mcL (0.0-1.3); Monocytes % 9.2 %; Neutrophils # 5.1 K/mcL (1.6-8.9); Platelet Count 136 K/mcL (140-400); Red Blood Count 3.03 M/mcL (4.19-5.50); Segmented Neutrophils % 75.9 %; White Blood Count 6.8 K/mcL (4.3-11.1)
[2019-08-21 07:10] LABS: Calcium 8.2 mg/dL (8.6-10.3)
[2019-08-21] MEDS: Isosorbide MONOnitrate (24 HR) 30 MG TAB.ER.24H PO SCH (08:05)
[2019-08-21] MEDS: Aspirin 81 MG TAB.CHEW PO SCH (08:05)
[2019-08-21] MEDS: Multivit/Ca/Min/Fe/FA 1 TAB TABLET PO SCH (08:06)
[2019-08-21] MEDS: Metoprolol XL (24 HR) Succ 25 MG TAB.ER.24H PO SCH (08:06)
[2019-08-21] MEDS: Fluticasone Propionate Nasal 50 MCG/SPRAY BOTTLE NS SCH (08:06)
[2019-08-21] MEDS: (Ubidecarenone/Vit E Acetate [Co Q-10 100 Mg Softgel] PO SCH (08:07)
[2019-08-21 11:32] VITALS: BP 128/73
[2019-08-21] MEDS: *HR* LORazepam 0.5 MG TABLET PO SCH (12:16)
[2019-08-21 13:20] LABS: Calcium 8.6 mg/dL (8.6-10.3); Potassium 4.1 mEq/L (3.5-5.1)
== END 2019-08-21 16:17 | disposition home or self-care (01) ==
LOC: 3BNU 05:14 → EMEROOARM 05:14 → SUATTDRO 07:30 → 3BNU 08:33
PROVIDERS: ADMIT Internal Medicine; ATTEND Internal Medicine

== ENCOUNTER 2020-12-01 21:15 | Observation (INO) ==
[2020-12-01 22:15] LABS: Basophils % 0.5 %; Eosinophils % 0.4 %; Hematocrit 32.6 % (37.5-50.1); Hemoglobin 10.7 g/dL (12.9-16.9); Immature Granulocytes % 0.5 % (0-4); Lymphocytes # 1.1 K/mcL (0.6-4.6); Lymphocytes % 12.9 %; Mean Corpuscular HGB Conc 32.8 g/dL (31.6-35.5); Mean Corpuscular Hemoglobin 34.1 pg (28.0-33.3); Mean Corpuscular Volume 103.8 fL (83.0-100.0); Mean Platelet Volume 10.1 fL (9.4-12.4); Monocytes # 0.5 K/mcL (0.0-1.3); Monocytes % 6.1 %; Neutrophils # 6.5 K/mcL (1.6-8.9); Platelet Count 178 K/mcL (140-400); Red Blood Count 3.14 M/mcL (4.19-5.50); Red Cell Distribution Width 16.7 % (11.5-14.5); Segmented Neutrophils % 79.6 %; White Blood Count 8.2 K/mcL (4.3-11.1)
[2020-12-01 22:36] LABS: Albumin 3.5 g/dL (3.5-5.7); Albumin/Globulin Ratio 1.3 (1.1-2.2); Bilirubin,Total 2.1 mg/dL (0.3-1.0); Calcium 8.9 mg/dL (8.6-10.3); Globulin 2.7 g/dL (2.4-3.5); Potassium 4.8 mEq/L (3.5-5.1); Total Protein 6.2 g/dL (6.4-8.9)
[2020-12-01 22:41] LABS: Troponin I 0.11 ng/mL (< 0.04)
[2020-12-02] MEDS ORDERED: cefTRIAXone 1,000 MG in Water for inj. (sterile) 10 ML IVP ONE (00:07)
[2020-12-02] MEDS ORDERED: Azithromycin 250 MG TABLET PO ONE (00:08)
[2020-12-02] MEDS ORDERED: Furosemide 40 MG/4 ML VIAL IVP ONE (00:09)
[2020-12-02] MEDS ORDERED: Melatonin 3 MG TABLET PO PRN (01:07)
[2020-12-02] MEDS ORDERED: Naloxone 0.4 MG/ML INJ IVP PRN (01:07)
[2020-12-02] MEDS ORDERED: Ondansetron ODT 4 MG TAB.RAPDIS SL PRN (01:07)
[2020-12-02] MEDS ORDERED: Perflutren Lipid Microsphere 1.3 ML in 0.9 % Sodium Chloride 8.7 ML IVP PRN (01:11)
[2020-12-02 02:06] LABS: Bilirubin,Urine Negative (Negative); Blood,Urine Negative (Negative); Clarity,Urine Clear (Clear); Color,Urine Light-Yellow (Yellow); Glucose,Urine (UA) Normal (Normal); Ketones,Urine Negative (Negative); Leukocyte Esterase,Urine Negative (Negative); Nitrite,Urine Negative (Negative); Protein,Urine Negative (Neg-Trace); Specific Gravity,Urine 1.011 (1.010-1.025); Urobilinogen,Urine Normal (Normal)
[2020-12-02] MEDS ORDERED: *HR* Enoxaparin 80 MG/0.8 ML SYRINGE SQ SCH (06:00)
[2020-12-02] MEDS ORDERED: *HR* Heparin 5,000 UNIT/ML VIAL SQ SCH (06:00)
[2020-12-02 06:38] LABS: Basophils # 0.1 K/mcL (0.0-0.2); Basophils % 0.7 %; Eosinophils % 0.4 %; Hematocrit 31.9 % (37.5-50.1); Hemoglobin 10.8 g/dL (12.9-16.9); Immature Granulocytes % 0.5 % (0-4); Lymphocytes # 0.9 K/mcL (0.6-4.6); Lymphocytes % 10.8 %; Mean Corpuscular HGB Conc 33.9 g/dL (31.6-35.5); Mean Corpuscular Hemoglobin 34.4 pg (28.0-33.3); Mean Corpuscular Volume 101.6 fL (83.0-100.0); Mean Platelet Volume 10.1 fL (9.4-12.4); Monocytes # 0.5 K/mcL (0.0-1.3); Monocytes % 5.7 %; Neutrophils # 6.7 K/mcL (1.6-8.9); Platelet Count 162 K/mcL (140-400); Red Blood Count 3.14 M/mcL (4.19-5.50); Red Cell Distribution Width 16.5 % (11.5-14.5); Segmented Neutrophils % 81.9 %; White Blood Count 8.2 K/mcL (4.3-11.1)
[2020-12-02 06:59] LABS: Calcium 9.2 mg/dL (8.6-10.3); Potassium 4.3 mEq/L (3.5-5.1)
[2020-12-02] MEDS ORDERED: Furosemide 40 MG/4 ML VIAL IVP SCH ×2 (09:00)
[2020-12-02] MEDS ORDERED: Doxycycline 100 MG CAPSULE PO SCH (09:00)
[2020-12-02 10:50] VITALS: BP 123/66
== END 2020-12-02 12:13 | disposition home or self-care (01) ==
LOC: CDU 21:15 → EMEROOARM 21:15 → CDU 12-02 02:59
PROVIDERS: ADMIT Internal Medicine; ATTEND Internal Medicine

== ENCOUNTER 2021-08-17 14:43 | Inpatient (IN) ==
[2021-08-17 15:41] LABS: Basophils % 0.1 %; Hematocrit 30.7 % (37.5-50.1); Hemoglobin 10.3 g/dL (12.9-16.9); Immature Granulocytes % 0.5 % (0-4); Lymphocytes # 0.3 K/mcL (0.6-4.6); Lymphocytes % 1.5 %; Mean Corpuscular HGB Conc 33.6 g/dL (31.6-35.5); Mean Corpuscular Hemoglobin 34.6 pg (28.0-33.3); Mean Platelet Volume 10.4 fL (9.4-12.4); Monocytes # 0.9 K/mcL (0.0-1.3); Monocytes % 4.5 %; Neutrophils # 18.1 K/mcL (1.6-8.9); Platelet Count 146 K/mcL (140-400); Red Blood Count 2.98 M/mcL (4.19-5.50); Red Cell Distribution Width 16.3 % (11.5-14.5); Segmented Neutrophils % 93.4 %; White Blood Count 19.4 K/mcL (4.3-11.1)
[2021-08-17 15:52] LABS: INR 1.4; Prothrombin Time 15.7 Seconds (9.4-12.1)
[2021-08-17 15:55] LABS: Activated Partial Thrombo Time 30.2 Seconds (26.0-36.0)
[2021-08-17 16:05] LABS: Calcium 8.7 mg/dL (8.6-10.3); Potassium 4.1 mEq/L (3.5-5.1)
[2021-08-17] MEDS ORDERED: Doxycycline 100 MG in 0.9 % Sodium Chloride Mini Bag 100 ML IVPB ONE (16:13)
[2021-08-17] MEDS ORDERED: Piperacillin/Tazobactam 3.375 GM in 0.9 % Sodium Chloride Mini Bag 100 ML IVP ONE (16:13)
[2021-08-17 16:15] LABS: Troponin I 0.34 ng/mL (< 0.04)
[2021-08-17] MEDS ORDERED: *HR* Heparin 5,000 UNIT/ML VIAL IVP ONE (16:20)
[2021-08-17] MEDS ORDERED: *HR* Heparin 5,000 UNIT/ML VIAL IVP PRN ×2 (16:20)
[2021-08-17] MEDS ORDERED: Ondansetron 4 MG/2 ML VIAL IVP PRN (16:35)
[2021-08-17] MEDS ORDERED: Naloxone 0.4 MG/ML INJ IVP PRN (16:35)
[2021-08-17] MEDS ORDERED: Doxycycline 100 MG CAPSULE PO ONE (17:00)
[2021-08-17] MEDS ORDERED: Piperacillin/Tazobactam 3.375 GM in Water for inj. (sterile) 20 ML IVP ONE (17:00)
[2021-08-17] MEDS: Heparin 25,000UNIT/250ML 1/2NS 25,000 UNIT/250 ML IV.SOLN IVC SCH (17:17)
[2021-08-17] MEDS ORDERED: Nitroglycerin 0.4 MG TAB.SUBL SL PRN (17:19)
[2021-08-17] MEDS ORDERED: Furosemide 20 MG/2 ML VIAL IVP SCH ×2 (21:00)
[2021-08-17] MEDS: *HR* LORazepam 0.5 MG TABLET PO PRN (22:32)
[2021-08-17] MEDS: Piperacillin/Tazobactam 3.375 GM in 0.9 % Sodium Chloride Mini Bag 100 ML IVPB SCH (22:34)
[2021-08-18 00:49] LABS: Albumin 3.8 g/dL (3.5-5.7); Albumin/Globulin Ratio 1.7 (1.1-2.2); Bilirubin,Total 2.6 mg/dL (0.3-1.0); Calcium 8.9 mg/dL (8.6-10.3); Chol/HDL Ratio 1.6 (0-4.9); Globulin 2.3 g/dL (2.4-3.5); Phosphorous 2.9 mg/dL (2.7-4.5); Total Protein 6.1 g/dL (6.4-8.9)
[2021-08-18 08:09] LABS: Troponin I 0.41 ng/mL (< 0.04)
[2021-08-18 08:31] LABS: Basophils % 0.1 %; Hematocrit 28.6 % (37.5-50.1); Hemoglobin 9.9 g/dL (12.9-16.9); Immature Granulocytes % 0.6 % (0-4); Lymphocytes # 0.9 K/mcL (0.6-4.6); Lymphocytes % 6.1 %; Mean Corpuscular HGB Conc 34.6 g/dL (31.6-35.5); Mean Platelet Volume 10.4 fL (9.4-12.4); Neutrophils # 12.1 K/mcL (1.6-8.9); Nucleated Red Blood Cells 0.1 /100 WBC (0); Platelet Count 129 K/mcL (140-400); Red Blood Count 2.75 M/mcL (4.19-5.50); Red Cell Distribution Width 16.3 % (11.5-14.5); Segmented Neutrophils % 86.2 %
[2021-08-18] MEDS ORDERED: Metoprolol XL (24 HR) Succ 25 MG TAB.ER.24H PO SCH (09:00)
[2021-08-18] MEDS ORDERED: Isosorbide MONOnitrate (24 HR) 60 MG TAB.ER.24H PO SCH (09:00)
[2021-08-18] MEDS ORDERED: Doxycycline 100 MG in 0.9 % Sodium Chloride Mini Bag 100 ML IVPB SCH (09:00)
[2021-08-18] MEDS: Aspirin 81 MG TAB.CHEW PO SCH (09:02)
[2021-08-18] MEDS: Isosorbide MONOnitrate (24 HR) 60 MG TAB.ER.24H PO SCH (09:05)
[2021-08-18] MEDS: Metoprolol XL (24 HR) Succ 25 MG TAB.ER.24H PO SCH (09:05)
[2021-08-18] MEDS: Doxycycline 100 MG in 0.9 % Sodium Chloride Mini Bag 100 ML IVPB SCH ×2 (09:25→21:16)
[2021-08-18] MEDS ORDERED: Perflutren Lipid Microsphere 1.3 ML in 0.9 % Sodium Chloride 8.7 ML IVP PRN (11:14)
[2021-08-18 11:23] LABS: Bilirubin,Urine Negative (Negative); Blood,Urine Negative (Negative); Clarity,Urine Clear (Clear); Color,Urine Light-Yellow (Yellow); Glucose,Urine (UA) Normal (Normal); Ketones,Urine Negative (Negative); Leukocyte Esterase,Urine Negative (Negative); Nitrite,Urine Negative (Negative); PH,Urine 6.5 pH Units (5.0-8.0); Protein,Urine Negative (Neg-Trace); Specific Gravity,Urine 1.012 (1.010-1.025); Urobilinogen,Urine Normal (Normal)
[2021-08-18] MEDS: Piperacillin/Tazobactam 3.375 GM in 0.9 % Sodium Chloride Mini Bag 100 ML IVPB SCH ×3 (11:37→21:05)
[2021-08-18 11:40] LABS: Sodium, Urine 64.4 mEq/L
[2021-08-18 12:28] LABS: Uric Acid 12.9 mg/dL (2.3-7.6)
[2021-08-18] MEDS ORDERED: Furosemide 20 MG/2 ML VIAL IVP SCH (14:00)
[2021-08-18] MEDS: Heparin 25,000UNIT/250ML 1/2NS 25,000 UNIT/250 ML IV.SOLN IVC SCH (17:53)
[2021-08-18] MEDS: Albumin 25% 25gram/100mL 25 GM/100 ML IV.SOLN IVPB SCH (19:11)
[2021-08-18] MEDS ORDERED: *HR* Metoprolol 5 MG/5 ML VIAL IVP ONE (20:33)
[2021-08-18] MEDS: *HR* LORazepam 0.5 MG TABLET PO PRN (22:32)
[2021-08-18] MEDS: Furosemide 20 MG/2 ML VIAL IVP SCH (22:32)
[2021-08-19] MEDS: Piperacillin/Tazobactam 3.375 GM in 0.9 % Sodium Chloride Mini Bag 100 ML IVPB SCH ×3 (04:52→21:59)
[2021-08-19] MEDS: Albumin 25% 25gram/100mL 25 GM/100 ML IV.SOLN IVPB SCH ×2 (05:53→19:14)
[2021-08-19 06:35] LABS: Hematocrit 23.6 % (37.5-50.1); Immature Granulocytes % 0.6 % (0-4); Lymphocytes # 0.7 K/mcL (0.6-4.6); Lymphocytes % 8.2 %; Mean Corpuscular HGB Conc 33.9 g/dL (31.6-35.5); Mean Corpuscular Hemoglobin 35.1 pg (28.0-33.3); Mean Corpuscular Volume 103.5 fL (83.0-100.0); Mean Platelet Volume 10.7 fL (9.4-12.4); Monocytes # 0.7 K/mcL (0.0-1.3); Platelet Count 112 K/mcL (140-400); Red Blood Count 2.28 M/mcL (4.19-5.50); Red Cell Distribution Width 16.2 % (11.5-14.5); Segmented Neutrophils % 83.2 %; White Blood Count 8.4 K/mcL (4.3-11.1)
[2021-08-19 06:51] LABS: Calcium 8.4 mg/dL (8.6-10.3); INR 1.4; Phosphorous 3.1 mg/dL (2.7-4.5); Potassium 3.6 mEq/L (3.5-5.1); Prothrombin Time 15.3 Seconds (9.4-12.1)
[2021-08-19] MEDS: Doxycycline 100 MG in 0.9 % Sodium Chloride Mini Bag 100 ML IVPB SCH ×2 (07:38→20:54)
[2021-08-19] MEDS: Aspirin 81 MG TAB.CHEW PO SCH (07:38)
[2021-08-19] MEDS: Furosemide 20 MG/2 ML VIAL IVP SCH ×2 (07:39→21:57)
[2021-08-19] MEDS: Isosorbide MONOnitrate (24 HR) 60 MG TAB.ER.24H PO SCH (07:39)
[2021-08-19] MEDS: Metoprolol XL (24 HR) Succ 25 MG TAB.ER.24H PO SCH (07:39)
[2021-08-19] MEDS ORDERED: Sennosides/Docusate Sodium TABLET PO PRN (13:30)
[2021-08-19] MEDS: *HR* LORazepam 0.5 MG TABLET PO PRN (20:56)
[2021-08-20] MEDS ORDERED: Melatonin 3 MG TABLET PO ONE (01:19)
[2021-08-20] MEDS: Piperacillin/Tazobactam 3.375 GM in 0.9 % Sodium Chloride Mini Bag 100 ML IVPB SCH (05:44)
[2021-08-20] MEDS: Metoprolol XL (24 HR) Succ 25 MG TAB.ER.24H PO SCH (07:29)
[2021-08-20] MEDS: Aspirin 81 MG TAB.CHEW PO SCH (07:29)
[2021-08-20] MEDS: Isosorbide MONOnitrate (24 HR) 60 MG TAB.ER.24H PO SCH (07:29)
[2021-08-20] MEDS: Albumin 25% 25gram/100mL 25 GM/100 ML IV.SOLN IVPB SCH (07:30)
[2021-08-20] MEDS: Doxycycline 100 MG in 0.9 % Sodium Chloride Mini Bag 100 ML IVPB SCH (07:30)
[2021-08-20 08:03] VITALS: BP 115/73; PULSE 72; TEMP 98.5; O2SAT 98
[2021-08-20] MEDS: Furosemide 20 MG/2 ML VIAL IVP SCH (09:10)
[2021-08-20 09:39] LABS: Eosinophils % 0.1 %; Hematocrit 25.2 % (37.5-50.1); Hemoglobin 8.5 g/dL (12.9-16.9); Immature Granulocytes % 0.5 % (0-4); Lymphocytes # 0.7 K/mcL (0.6-4.6); Lymphocytes % 8.6 %; Mean Corpuscular HGB Conc 33.7 g/dL (31.6-35.5); Mean Corpuscular Hemoglobin 35.9 pg (28.0-33.3); Mean Corpuscular Volume 106.3 fL (83.0-100.0); Mean Platelet Volume 10.7 fL (9.4-12.4); Monocytes # 0.6 K/mcL (0.0-1.3); Monocytes % 7.7 %; Neutrophils # 6.9 K/mcL (1.6-8.9); Platelet Count 114 K/mcL (140-400); Red Blood Count 2.37 M/mcL (4.19-5.50); Red Cell Distribution Width 16.2 % (11.5-14.5); Segmented Neutrophils % 83.1 %; White Blood Count 8.3 K/mcL (4.3-11.1)
[2021-08-20 10:08] LABS: Magnesium 2.1 mg/dL (1.6-2.6); Phosphorous 3.6 mg/dL (2.7-4.5); Potassium 3.5 mEq/L (3.5-5.1)
== END 2021-08-20 13:12 | disposition home health service (06) | DRG 280 ==
LOC: EMEROOARM 14:43 → 2ANU 14:43 → SUATTDRO 16:55 → 2ANU 17:49
PROVIDERS: ADMIT Family Medicine; ATTEND Internal Medicine

== ENCOUNTER 2021-12-15 23:37 | Inpatient (IN) ==
[2021-12-16] MEDS ORDERED: Tdap (Boostrix) Vaccine 0.5 ML SYRINGE IM ONE (01:12)
[2021-12-16] MEDS ORDERED: Lidocaine -MPF 1% 2 ML VIAL INFILT ONE (02:38)
[2021-12-16] MEDS ORDERED: *HR* HYDROcodone/Acet 5/325 mg TABLET PO ONE (04:00)
[2021-12-16] MEDS ORDERED: cephALEXin 500 MG CAPSULE PO ONE (04:00)
[2021-12-16] MEDS ORDERED: Isovue-370 500 ML BOTTLE IVP ONE (07:18)
[2021-12-16 08:51] LABS: Basophils % 0.1 %; Eosinophils % 0.1 %; Hematocrit 34.3 % (37.5-50.1); Hemoglobin 10.8 g/dL (12.9-16.9); Immature Granulocytes % 0.6 % (0-4); Lymphocytes # 0.8 K/mcL (0.6-4.6); Lymphocytes % 5.8 %; Mean Corpuscular HGB Conc 31.5 g/dL (31.6-35.5); Mean Corpuscular Hemoglobin 33.1 pg (28.0-33.3); Mean Corpuscular Volume 105.2 fL (83.0-100.0); Mean Platelet Volume 10.4 fL (9.4-12.4); Monocytes # 0.6 K/mcL (0.0-1.3); Monocytes % 4.4 %; Neutrophils # 12.4 K/mcL (1.6-8.9); Platelet Count 159 K/mcL (140-400); Red Blood Count 3.26 M/mcL (4.19-5.50); Red Cell Distribution Width 17.1 % (11.5-14.5); White Blood Count 13.9 K/mcL (4.3-11.1)
[2021-12-16 09:10] LABS: Blood Urea Nitrogen 52 mg/dL (8-23); Carbon Dioxide 26 mEq/L (23-29); Chloride 102 mEq/L (98-107); Sodium 135 mEq/L (136-145)
[2021-12-16 09:11] LABS: BUN/Creatinine Ratio 38 (6-26); Calcium 8.9 mg/dL (8.6-10.3); Glucose 108 mg/dL (70-105); Osmolality,Calculated 295 (280-300); eGFR For African Americans > 60 (> 60); eGFR For Non-African Americans 50 (> 60)
[2021-12-16] MEDS ORDERED: Naloxone 0.4 MG/ML INJ IVP PRN (11:37)
[2021-12-16] MEDS ORDERED: Acetaminophen 325 MG TABLET PO PRN (11:37)
[2021-12-16] MEDS ORDERED: Ondansetron ODT 4 MG TAB.RAPDIS SL PRN (11:37)
[2021-12-16] MEDS ORDERED: 0.9 % Sodium Chloride 1,000 ML IVC SCH (11:45)
[2021-12-16] MEDS: *HR* Heparin 5,000 UNIT/ML VIAL SQ SCH ×2 (14:02→21:49)
[2021-12-16] MEDS: cephALEXin 500 MG CAPSULE PO SCH ×2 (16:50→21:49)
[2021-12-16] MEDS: *HR* HYDROcodone/Acet 5/325 mg TABLET PO PRN (17:39)
[2021-12-17] MEDS: *HR* HYDROcodone/Acet 5/325 mg TABLET PO PRN ×2 (03:31→14:23)
[2021-12-17] MEDS: *HR* Heparin 5,000 UNIT/ML VIAL SQ SCH ×3 (05:11→18:54)
[2021-12-17 05:43] LABS: Basophils % 0.1 %; Hematocrit 31.8 % (37.5-50.1); Hemoglobin 10.2 g/dL (12.9-16.9); Immature Granulocytes % 0.8 % (0-4); Lymphocytes # 0.5 K/mcL (0.6-4.6); Lymphocytes % 4.1 %; Mean Corpuscular HGB Conc 32.1 g/dL (31.6-35.5); Mean Corpuscular Hemoglobin 33.6 pg (28.0-33.3); Mean Corpuscular Volume 104.6 fL (83.0-100.0); Mean Platelet Volume 10.1 fL (9.4-12.4); Monocytes # 0.5 K/mcL (0.0-1.3); Neutrophils # 10.8 K/mcL (1.6-8.9); Nucleated Red Blood Cells 0.3 /100 WBC (0); Platelet Count 159 K/mcL (140-400); Red Blood Count 3.04 M/mcL (4.19-5.50); Red Cell Distribution Width 17.2 % (11.5-14.5); White Blood Count 11.9 K/mcL (4.3-11.1)
[2021-12-17 06:12] LABS: BUN/Creatinine Ratio 35 (6-26); Blood Urea Nitrogen 46 mg/dL (8-23); Calcium 8.7 mg/dL (8.6-10.3); Carbon Dioxide 22 mEq/L (23-29); Chloride 104 mEq/L (98-107); Glucose 115 mg/dL (70-105); Osmolality,Calculated 295 (280-300); Potassium 4.9 mEq/L (3.5-5.1); Sodium 136 mEq/L (136-145); eGFR For African Americans > 60 (> 60); eGFR For Non-African Americans 53 (> 60)
[2021-12-17 06:27] LABS: Folate > 22.3 ng/mL (3.0-16.0); Vitamin B12 795 pg/mL (250-1100)
[2021-12-17] MEDS ORDERED: Sennosides/Docusate Sodium TABLET PO PRN (08:12)
[2021-12-17] MEDS ORDERED: Furosemide 40 MG TABLET PO PRN (08:12)
[2021-12-17] MEDS: *HR* LORazepam 0.5 MG TABLET PO SCH ×2 (09:52→20:29)
[2021-12-17] MEDS: predniSONE 20 MG TABLET PO SCH (09:52)
[2021-12-17] MEDS: Aspirin 81 MG TAB.CHEW PO SCH (09:52)
[2021-12-17] MEDS: cephALEXin 500 MG CAPSULE PO SCH (09:52)
[2021-12-17] MEDS: Piperacillin/Tazobactam 3.375 GM in 0.9 % Sodium Chloride Mini Bag 100 ML IVPB SCH (15:58)
[2021-12-17] MEDS: Metoprolol XL (24 HR) Succ 25 MG TAB.ER.24H PO SCH (20:30)
[2021-12-18] MEDS: Piperacillin/Tazobactam 3.375 GM in 0.9 % Sodium Chloride Mini Bag 100 ML IVPB SCH ×3 (00:29→20:49)
[2021-12-18 05:44] LABS: Basophils % 0.1 %; Hematocrit 29.3 % (37.5-50.1); Hemoglobin 9.5 g/dL (12.9-16.9); Immature Granulocytes % 0.6 % (0-4); Lymphocytes # 0.6 K/mcL (0.6-4.6); Mean Corpuscular HGB Conc 32.4 g/dL (31.6-35.5); Mean Corpuscular Hemoglobin 33.9 pg (28.0-33.3); Mean Corpuscular Volume 104.6 fL (83.0-100.0); Mean Platelet Volume 10.5 fL (9.4-12.4); Monocytes # 0.6 K/mcL (0.0-1.3); Monocytes % 5.1 %; Neutrophils # 10.1 K/mcL (1.6-8.9); Nucleated Red Blood Cells 0.4 /100 WBC (0); Platelet Count 154 K/mcL (140-400); Segmented Neutrophils % 89.2 %; White Blood Count 11.3 K/mcL (4.3-11.1)
[2021-12-18] MEDS: predniSONE 20 MG TABLET PO SCH (08:41)
[2021-12-18] MEDS: Metoprolol XL (24 HR) Succ 25 MG TAB.ER.24H PO SCH (08:42)
[2021-12-18] MEDS: Aspirin 81 MG TAB.CHEW PO SCH (08:42)
[2021-12-18] MEDS: *HR* LORazepam 0.5 MG TABLET PO SCH ×2 (08:44→20:44)
[2021-12-18] MEDS ORDERED: *HR* Propofol 200 MG/20 ML VIAL IVP ONE (15:09)
[2021-12-18] MEDS ORDERED: Ondansetron 4 MG/2 ML VIAL ONE (15:09)
[2021-12-18] MEDS ORDERED: Lidocaine -MPF 2% 5 ML VIAL ONE (15:09)
[2021-12-18] MEDS ORDERED: *HR* FentaNYL (PF) 100 MCG/2 ML VIAL ONE (15:12)
[2021-12-18] MEDS ORDERED: 0.9 % Sodium Chloride 1,000 ML IVC SCH (16:30)
[2021-12-18] MEDS ORDERED: Lacri-Lube 3.5 GM TUBE ONE (16:43)
[2021-12-18] MEDS ORDERED: Bupivacaine/EPI 1:200k 0.25% 50 ML VIAL ONE (16:47)
[2021-12-18] MEDS ORDERED: Lidocaine/EPI 1:100k 1% 30 ML VIAL ONE (16:47)
[2021-12-18] MEDS ORDERED: Naloxone 0.4 MG/ML INJ IVP PRN (18:18)
[2021-12-18] MEDS ORDERED: Ondansetron ODT 4 MG TAB.RAPDIS SL PRN (18:18)
[2021-12-18] MEDS: *HR* OxyCODONE Immed Rel 5 MG TABLET PO PRN (20:43)
[2021-12-19] MEDS: Piperacillin/Tazobactam 3.375 GM in 0.9 % Sodium Chloride Mini Bag 100 ML IVPB SCH ×3 (03:55→20:30)
[2021-12-19] MEDS: Aspirin 81 MG TAB.CHEW PO SCH (08:12)
[2021-12-19] MEDS: lisinopriL 5 MG TABLET PO SCH (08:12)
[2021-12-19] MEDS: predniSONE 20 MG TABLET PO SCH (08:13)
[2021-12-19] MEDS: *HR* LORazepam 0.5 MG TABLET PO SCH ×2 (08:13→20:30)
[2021-12-19] MEDS: Metoprolol XL (24 HR) Succ 25 MG TAB.ER.24H PO SCH (08:13)
[2021-12-19] MEDS: *HR* OxyCODONE Immed Rel 5 MG TABLET PO PRN ×2 (08:40→15:39)
[2021-12-19] MEDS ORDERED: lisinopriL 5 MG TABLET PO SCH (09:00)
[2021-12-20] MEDS: Piperacillin/Tazobactam 3.375 GM in 0.9 % Sodium Chloride Mini Bag 100 ML IVPB SCH ×3 (03:15→18:15)
[2021-12-20 04:58] LABS: Basophils % 0.1 %; Hematocrit 26.4 % (37.5-50.1); Hemoglobin 8.7 g/dL (12.9-16.9); Immature Granulocytes % 0.6 % (0-4); Lymphocytes # 0.5 K/mcL (0.6-4.6); Mean Corpuscular Hemoglobin 34.7 pg (28.0-33.3); Mean Corpuscular Volume 105.2 fL (83.0-100.0); Mean Platelet Volume 9.8 fL (9.4-12.4); Monocytes # 0.5 K/mcL (0.0-1.3); Monocytes % 4.3 %; Neutrophils # 11.4 K/mcL (1.6-8.9); Nucleated Red Blood Cells 0.8 /100 WBC (0); Platelet Count 147 K/mcL (140-400); Red Blood Count 2.51 M/mcL (4.19-5.50); Red Cell Distribution Width 16.9 % (11.5-14.5); White Blood Count 12.5 K/mcL (4.3-11.1)
[2021-12-20] MEDS: *HR* OxyCODONE Immed Rel 5 MG TABLET PO PRN (05:10)
[2021-12-20 05:21] LABS: Potassium 4.9 mEq/L (3.5-5.1)
[2021-12-20] MEDS ORDERED: *HR* OxyCODONE Immed Rel 5 MG TABLET PO ONE (09:32)
[2021-12-20] MEDS: lisinopriL 5 MG TABLET PO SCH (09:42)
[2021-12-20] MEDS: predniSONE 20 MG TABLET PO SCH (09:42)
[2021-12-20] MEDS: *HR* LORazepam 0.5 MG TABLET PO SCH ×2 (09:42→20:56)
[2021-12-20] MEDS: Metoprolol XL (24 HR) Succ 25 MG TAB.ER.24H PO SCH (09:42)
[2021-12-20] MEDS: Aspirin 81 MG TAB.CHEW PO SCH (09:43)
[2021-12-20] MEDS: *HR* HYDROcodone/Acet 5/325 mg TABLET PO PRN (14:20)
[2021-12-21 02:34] LABS: Basophils % 0.1 %; Hematocrit 28.2 % (37.5-50.1); Hemoglobin 8.9 g/dL (12.9-16.9); Immature Granulocytes % 1.3 % (0-4); Lymphocytes # 0.3 K/mcL (0.6-4.6); Lymphocytes % 2.5 %; Mean Corpuscular HGB Conc 31.6 g/dL (31.6-35.5); Mean Corpuscular Hemoglobin 33.1 pg (28.0-33.3); Mean Corpuscular Volume 104.8 fL (83.0-100.0); Mean Platelet Volume 10.4 fL (9.4-12.4); Monocytes # 0.3 K/mcL (0.0-1.3); Neutrophils # 9.7 K/mcL (1.6-8.9); Nucleated Red Blood Cells 1.1 /100 WBC (0); Platelet Count 154 K/mcL (140-400); Red Blood Count 2.69 M/mcL (4.19-5.50); Segmented Neutrophils % 93.1 %; White Blood Count 10.5 K/mcL (4.3-11.1)
[2021-12-21] MEDS: Piperacillin/Tazobactam 3.375 GM in 0.9 % Sodium Chloride Mini Bag 100 ML IVPB SCH ×3 (02:40→17:59)
[2021-12-21 03:03] LABS: Calcium 7.9 mg/dL (8.6-10.3); Potassium 5.2 mEq/L (3.5-5.1)
[2021-12-21] MEDS ORDERED: 0.9 % Sodium Chloride 1,000 ML IVC SCH (07:45)
[2021-12-21] MEDS ORDERED: 0.9 % Sodium Chloride 500 ML IVC SCH (07:45)
[2021-12-21] MEDS: Aspirin 81 MG TAB.CHEW PO SCH (08:31)
[2021-12-21] MEDS: *HR* HYDROcodone/Acet 5/325 mg TABLET PO PRN ×2 (08:31→18:16)
[2021-12-21] MEDS: Metoprolol XL (24 HR) Succ 25 MG TAB.ER.24H PO SCH (08:32)
[2021-12-21] MEDS: *HR* LORazepam 0.5 MG TABLET PO SCH ×2 (08:32→20:15)
[2021-12-21] MEDS: predniSONE 20 MG TABLET PO SCH (08:32)
[2021-12-21] MEDS: Sennosides/Docusate Sodium TABLET PO PRN (20:17)
[2021-12-22] MEDS: Piperacillin/Tazobactam 3.375 GM in 0.9 % Sodium Chloride Mini Bag 100 ML IVPB SCH ×3 (02:54→18:00)
[2021-12-22 07:00] LABS: Calcium 8.1 mg/dL (8.6-10.3); Potassium 5.1 mEq/L (3.5-5.1)
[2021-12-22] MEDS: Metoprolol XL (24 HR) Succ 25 MG TAB.ER.24H PO SCH (08:20)
[2021-12-22] MEDS: *HR* LORazepam 0.5 MG TABLET PO SCH ×2 (08:20→20:16)
[2021-12-22] MEDS: Sennosides/Docusate Sodium TABLET PO PRN ×2 (08:20→20:17)
[2021-12-22] MEDS: predniSONE 20 MG TABLET PO SCH (08:20)
[2021-12-22] MEDS: Aspirin 81 MG TAB.CHEW PO SCH (08:20)
[2021-12-22] MEDS ORDERED: 0.9 % Sodium Chloride 1,000 ML IVC SCH (08:30)
[2021-12-22] MEDS: *HR* HYDROcodone/Acet 5/325 mg TABLET PO PRN ×2 (14:53→20:22)
[2021-12-22 18:19] LABS: Bilirubin,Urine Negative (Negative); Blood,Urine Small (Negative); Clarity,Urine Clear (Clear); Color,Urine Yellow (Yellow); Glucose,Urine (UA) Normal (Normal); Ketones,Urine Trace mg/dL (Negative); Leukocyte Esterase,Urine Negative (Negative); Nitrite,Urine Negative (Negative); Protein,Urine 30 mg/dL (Neg-Trace); Specific Gravity,Urine 1.026 (1.010-1.025); Squamous Epithelial Cell,Urine Few per hpf (None-Few); Urobilinogen,Urine Normal (Normal)
[2021-12-23] MEDS: Piperacillin/Tazobactam 3.375 GM in 0.9 % Sodium Chloride Mini Bag 100 ML IVPB SCH ×2 (03:32→10:38)
[2021-12-23] MEDS: predniSONE 20 MG TABLET PO SCH (07:50)
[2021-12-23] MEDS: Metoprolol XL (24 HR) Succ 25 MG TAB.ER.24H PO SCH (07:51)
[2021-12-23] MEDS: Aspirin 81 MG TAB.CHEW PO SCH (07:51)
[2021-12-23] MEDS: *HR* LORazepam 0.5 MG TABLET PO SCH ×2 (07:51→20:24)
[2021-12-23] MEDS: *HR* HYDROcodone/Acet 5/325 mg TABLET PO PRN ×3 (07:51→20:24)
[2021-12-23 09:13] LABS: Hematocrit 30.3 % (37.5-50.1); Hemoglobin 9.7 g/dL (12.9-16.9)
[2021-12-23 09:31] LABS: Albumin/Globulin Ratio 1.5 (1.1-2.2); Bilirubin,Direct 0.5 mg/dL (0.0-0.2); Bilirubin,Indirect 1.2 mg/dL (0.0-1.0); Bilirubin,Total 1.7 mg/dL (0.3-1.0); Potassium 4.7 mEq/L (3.5-5.1)
[2021-12-23] MEDS: Furosemide 40 MG TABLET PO SCH (10:38)
[2021-12-23] MEDS: Sennosides/Docusate Sodium TABLET PO PRN (14:52)
[2021-12-23] MEDS: ceFAZolin 1,000 MG in 0.9 % Sodium Chloride 10 ML IVP SCH (17:46)
[2021-12-24] MEDS: ceFAZolin 1,000 MG in 0.9 % Sodium Chloride 10 ML IVP SCH ×2 (05:14→16:36)
[2021-12-24 06:58] LABS: Basophils % 0.2 %; Eosinophils % 0.1 %; Hematocrit 29.3 % (37.5-50.1); Hemoglobin 9.5 g/dL (12.9-16.9); Immature Granulocytes % 1.8 % (0-4); Lymphocytes # 0.8 K/mcL (0.6-4.6); Lymphocytes % 7.3 %; Mean Corpuscular HGB Conc 32.4 g/dL (31.6-35.5); Mean Corpuscular Hemoglobin 34.1 pg (28.0-33.3); Mean Platelet Volume 10.6 fL (9.4-12.4); Monocytes # 0.4 K/mcL (0.0-1.3); Monocytes % 3.5 %; Neutrophils # 9.6 K/mcL (1.6-8.9); Nucleated Red Blood Cells 1.9 /100 WBC (0); Platelet Count 177 K/mcL (140-400); Red Blood Count 2.79 M/mcL (4.19-5.50); Red Cell Distribution Width 17.2 % (11.5-14.5); Segmented Neutrophils % 87.1 %; White Blood Count 11.1 K/mcL (4.3-11.1)
[2021-12-24 07:05] LABS: INR 1.1; Prothrombin Time 12.1 Seconds (9.4-12.1)
[2021-12-24 07:21] LABS: Calcium 8.1 mg/dL (8.6-10.3); Potassium 4.4 mEq/L (3.5-5.1)
[2021-12-24 07:24] LABS: Albumin/Globulin Ratio 1.6 (1.1-2.2); Bilirubin,Direct 0.4 mg/dL (0.0-0.2); Bilirubin,Indirect 0.9 mg/dL (0.0-1.0); Bilirubin,Total 1.3 mg/dL (0.3-1.0); Globulin 1.9 g/dL (2.4-3.5); Total Protein 4.9 g/dL (6.4-8.9)
[2021-12-24] MEDS: Furosemide 40 MG TABLET PO SCH (08:48)
[2021-12-24] MEDS: *HR* LORazepam 0.5 MG TABLET PO SCH ×2 (08:48→21:23)
[2021-12-24] MEDS: Sennosides/Docusate Sodium TABLET PO PRN (08:48)
[2021-12-24] MEDS: *HR* HYDROcodone/Acet 5/325 mg TABLET PO PRN (08:48)
[2021-12-24] MEDS: Metoprolol XL (24 HR) Succ 25 MG TAB.ER.24H PO SCH (08:48)
[2021-12-24] MEDS: Aspirin 81 MG TAB.CHEW PO SCH (08:48)
[2021-12-24] MEDS: predniSONE 20 MG TABLET PO SCH (08:48)
[2021-12-24] MEDS: lisinopriL 5 MG TABLET PO SCH (08:49)
[2021-12-24 10:29] LABS: Hepatitis B Surface Antigen Nonreactive (Nonreactive)
[2021-12-24 10:58] LABS: Hepatitis C Virus Antibody Nonreactive (Nonreactive)
[2021-12-24 10:59] LABS: Hepatitis B Core IgM Nonreactive (Nonreactive)
[2021-12-24 11:00] LABS: Hepatitis A Antibody IgM Nonreactive (Nonreactive)
[2021-12-25] MEDS: ceFAZolin 1,000 MG in 0.9 % Sodium Chloride 10 ML IVP SCH (05:32)
[2021-12-25 06:17] LABS: Basophils % 0.3 %; Eosinophils % 0.1 %; Hematocrit 28.5 % (37.5-50.1); Hemoglobin 9.3 g/dL (12.9-16.9); Immature Granulocytes % 1.2 % (0-4); Lymphocytes # 0.6 K/mcL (0.6-4.6); Lymphocytes % 5.1 %; Mean Corpuscular HGB Conc 32.6 g/dL (31.6-35.5); Mean Corpuscular Hemoglobin 33.2 pg (28.0-33.3); Mean Corpuscular Volume 101.8 fL (83.0-100.0); Mean Platelet Volume 10.8 fL (9.4-12.4); Monocytes # 0.4 K/mcL (0.0-1.3); Monocytes % 3.5 %; Neutrophils # 9.6 K/mcL (1.6-8.9); Nucleated Red Blood Cells 1.6 /100 WBC (0); Platelet Count 179 K/mcL (140-400); Red Cell Distribution Width 17.1 % (11.5-14.5); Segmented Neutrophils % 89.8 %; White Blood Count 10.7 K/mcL (4.3-11.1)
[2021-12-25 06:33] LABS: Albumin 2.9 g/dL (3.5-5.7); Albumin/Globulin Ratio 1.8 (1.1-2.2); Bilirubin,Total 1.3 mg/dL (0.3-1.0); Calcium 7.9 mg/dL (8.6-10.3); Globulin 1.6 g/dL (2.4-3.5); Potassium 4.1 mEq/L (3.5-5.1); Total Protein 4.5 g/dL (6.4-8.9)
[2021-12-25] MEDS: lisinopriL 5 MG TABLET PO SCH (08:06)
[2021-12-25] MEDS: predniSONE 20 MG TABLET PO SCH (08:06)
[2021-12-25] MEDS: Furosemide 40 MG TABLET PO SCH (08:06)
[2021-12-25] MEDS: Aspirin 81 MG TAB.CHEW PO SCH (08:06)
[2021-12-25] MEDS: *HR* LORazepam 0.5 MG TABLET PO SCH ×2 (08:06→20:17)
[2021-12-25] MEDS: Metoprolol XL (24 HR) Succ 25 MG TAB.ER.24H PO SCH (08:07)
[2021-12-25] MEDS: *HR* HYDROcodone/Acet 5/325 mg TABLET PO PRN ×2 (08:07→20:24)
[2021-12-25] MEDS: Sennosides/Docusate Sodium TABLET PO PRN (08:07)
[2021-12-25] MEDS ORDERED: CeFAZolin 2,000 MG/120 ML BAG IVPB SCH (14:00)
[2021-12-26] MEDS ORDERED: CEFAZOLIN IVPB SCH (00:30)
[2021-12-26] MEDS ORDERED: SODIUM CHLORIDE IVPB SCH (00:30)
[2021-12-26 03:56] VITALS: O2SAT 95
[2021-12-26 05:51] LABS: Basophils % 0.3 %; Eosinophils % 0.2 %; Hemoglobin 9.8 g/dL (12.9-16.9); Immature Granulocytes % 1.2 % (0-4); Lymphocytes # 0.6 K/mcL (0.6-4.6); Lymphocytes % 5.3 %; Mean Corpuscular HGB Conc 32.7 g/dL (31.6-35.5); Mean Corpuscular Hemoglobin 33.3 pg (28.0-33.3); Mean Platelet Volume 10.4 fL (9.4-12.4); Monocytes # 0.5 K/mcL (0.0-1.3); Neutrophils # 10.1 K/mcL (1.6-8.9); Nucleated Red Blood Cells 1.2 /100 WBC (0); Platelet Count 167 K/mcL (140-400); Red Blood Count 2.94 M/mcL (4.19-5.50); Red Cell Distribution Width 17.1 % (11.5-14.5); White Blood Count 11.3 K/mcL (4.3-11.1)
[2021-12-26 06:15] LABS: BUN/Creatinine Ratio 42 (6-26); Blood Urea Nitrogen 56 mg/dL (8-23); Calcium 8.1 mg/dL (8.6-10.3); Carbon Dioxide 26 mEq/L (23-29); Chloride 100 mEq/L (98-107); Glucose 105 mg/dL (70-105); Osmolality,Calculated 290 (280-300); Sodium 132 mEq/L (136-145); eGFR For African Americans > 60 (> 60); eGFR For Non-African Americans 52 (> 60)
[2021-12-26] MEDS: lisinopriL 5 MG TABLET PO SCH (09:20)
[2021-12-26] MEDS: *HR* HYDROcodone/Acet 5/325 mg TABLET PO PRN (09:20)
[2021-12-26] MEDS: *HR* LORazepam 0.5 MG TABLET PO SCH (09:20)
[2021-12-26] MEDS: Furosemide 40 MG TABLET PO SCH (09:21)
[2021-12-26] MEDS: Metoprolol XL (24 HR) Succ 25 MG TAB.ER.24H PO SCH (09:21)
[2021-12-26] MEDS: Aspirin 81 MG TAB.CHEW PO SCH (09:21)
[2021-12-26] MEDS: predniSONE 20 MG TABLET PO SCH (09:21)
[2021-12-26] MEDS ORDERED: CeFAZolin 2 GM/100 ML BAG IVPB SCH (10:00)
[2021-12-26 10:36] LABS: Influenza A PCR Negative (Negative); Influenza B PCR Negative (Negative); Resp. Syncytial Virus PCR Negative (Negative); SARS-CoV-2 by PCR (In House) Negative (Negative)
[2021-12-26 11:52] VITALS: PULSE 71
[2021-12-26 14:09] VITALS: BP 117/73; TEMP 97.8
== END 2021-12-26 14:22 | DRG 513 ==
LOC: EMEROOARM 23:37 → 3ANU 23:37 → SUATTDRO 12-16 09:28 → 3ANU 12-16 10:49 → SUATTDRO 12-17 16:52
PROVIDERS: ADMIT Internal Medicine; ATTEND Family Medicine